=== PATIENT | male | born 1950 | race Caucasian/White ===

== ENCOUNTER 2020-09-11 10:11 | Outpatient (REF) | payer MEDICARE, SELFPAY ==
[2020-09-11 11:39] LABS: Estimated Average Glucose 114 mg/dL; Hemoglobin A1c % 5.6 %
== END 2020-09-11 10:12 | disposition home or self-care (01) ==
LOC: HO.MANLR 10:11
PROVIDERS: PCP Internal Medicine; Visit Provider Internal Medicine
DX: E11.9 Type 2 diabetes mellitus without complications (principal)
CPT/HCPCS: 83036

== ENCOUNTER 2021-01-06 07:33 | Outpatient (REF) | payer MEDICARE, SELFPAY ==
[2021-01-06 11:33] LABS: Estimated Average Glucose 114 mg/dL; Hemoglobin A1C 150.0799 umol/L; Hemoglobin A1c % 5.6 %
[2021-01-06 11:49] LABS: Alanine Aminotransferase 21 U/L (0-40); Albumin Level 4.5 g/dL (3.5-5.0); Alkaline Phosphatase 60 U/L (39-117); Anion Gap 14 (12-20); Aspartate Amino Transferase 23 U/L (5-37); Bilirubin Total 1.2 mg/dL (0.0-1.0); Blood Urea Nitrogen 17 mg/dL (9-16); Calcium 9.2 mg/dL (8.4-10.2); Carbon Dioxide 31 mmol/L (22-29); Chloride 101 mmol/L (96-108); Cholesterol 188 mg/dL; Estimated Glomerular Filt Rate 49; Glucose Fasting 113 mg/dL (60-99); HDL Cholesterol 36 mg/dL; LDL Cholesterol Calculated 104 mg/dl; Potassium 4.4 mmol/L (3.3-5.1); Sodium 142 mmol/L (135-145); Total Protein 6.8 g/dL (6.5-8.0); Triglycerides 241 mg/dL
[2021-01-06 11:51] LABS: Creatinine Urine 133.53 mg/dL; Microalbum/Creatinine Ratio Ur 4.4 ug/mg cr
== END 2021-01-06 07:34 | disposition home or self-care (01) ==
LOC: HO.MANLDS 07:33
PROVIDERS: PCP Internal Medicine; Visit Provider Internal Medicine
DX: E11.9 Type 2 diabetes mellitus without complications (principal)
CPT/HCPCS: 36415; 80053; 80061; 82043; 83036

== ENCOUNTER 2021-04-16 07:34 | Outpatient (REF) | payer MEDICARE, SELFPAY ==
[2021-04-16 11:37] LABS: Estimated Average Glucose 123 mg/dL; Hemoglobin A1c % 5.9 %
[2021-04-16 11:42] LABS: Alanine Aminotransferase 19 U/L (0-40); Albumin Level 4.1 g/dL (3.5-5.0); Alkaline Phosphatase 62 U/L (39-117); Anion Gap 12 (12-20); Aspartate Amino Transferase 21 U/L (5-37); Bilirubin Total 0.9 mg/dL (0.0-1.0); Blood Urea Nitrogen 15 mg/dL (9-16); Calcium 9.5 mg/dL (8.4-10.2); Carbon Dioxide 32 mmol/L (22-29); Chloride 102 mmol/L (96-108); Estimated Glomerular Filt Rate 45; Glucose Random 159 mg/dL (60-115); Potassium 4.4 mmol/L (3.3-5.1); Sodium 142 mmol/L (135-145); Total Protein 6.3 g/dL (6.5-8.0)
== END 2021-04-16 07:35 | disposition home or self-care (01) ==
LOC: HO.MANLDS 07:34
PROVIDERS: PCP Internal Medicine; Visit Provider Internal Medicine
DX: E11.9 Type 2 diabetes mellitus without complications (principal)
CPT/HCPCS: 36415; 80053; 83036

== ENCOUNTER 2021-05-19 07:36 | Outpatient (REF) | payer MEDICARE, SELFPAY ==
[2021-05-19 12:04] LABS: Anion Gap 12 (12-20); Blood Urea Nitrogen 15 mg/dL (9-16); Calcium 9.3 mg/dL (8.4-10.2); Carbon Dioxide 28 mmol/L (22-29); Chloride 105 mmol/L (96-108); Estimated Glomerular Filt Rate 52; Potassium 4.4 mmol/L (3.3-5.1); Sodium 141 mmol/L (135-145)
== END 2021-05-19 07:37 | disposition home or self-care (01) ==
LOC: HO.MANLDS 07:36
PROVIDERS: PCP Internal Medicine; Visit Provider Internal Medicine
DX: N18.9 Chronic kidney disease, unspecified (principal)
CPT/HCPCS: 36415; 80051; 82310; 82565; 84520

== ENCOUNTER 2021-10-10 08:04 | Outpatient (REF) | payer MEDICARE, SELFPAY ==
[2021-10-10 11:13] LABS: Estimated Average Glucose 111 mg/dL; Hemoglobin A1c % 5.5 %
[2021-10-10 11:37] LABS: Anion Gap 13 (12-20); Blood Urea Nitrogen 16 mg/dL (9-16); Calcium 9.5 mg/dL (8.4-10.2); Carbon Dioxide 26 mmol/L (22-29); Chloride 106 mmol/L (96-108); Cholesterol 178 mg/dL; Estimated Glomerular Filt Rate 54; HDL Cholesterol 35 mg/dL; LDL Cholesterol Calculated 97 mg/dl; Potassium 4.2 mmol/L (3.3-5.1); Sodium 141 mmol/L (135-145); Triglycerides 234 mg/dL
[2021-10-10 11:55] LABS: Creatinine Urine 110.35 mg/dL; Microalbum/Creatinine Ratio Ur 6.3 ug/mg cr
== END 2021-10-10 08:05 | disposition home or self-care (01) ==
LOC: HO.MANLDS 08:04
PROVIDERS: PCP Internal Medicine; Visit Provider Internal Medicine
DX: E11.9 Type 2 diabetes mellitus without complications (principal); N18.9 Chronic kidney disease, unspecified
CPT/HCPCS: 36415; 80051; 80061; 82043; 82310; 82565; 83036; 84520

== ENCOUNTER 2022-01-05 08:10 | Outpatient (REF) | payer MEDICARE, SELFPAY ==
[2022-01-05 12:01] LABS: Estimated Average Glucose 111 mg/dL; Hemoglobin A1c % 5.5 %
== END 2022-01-05 08:11 | disposition home or self-care (01) ==
LOC: HO.MANLDS 08:10
PROVIDERS: PCP Internal Medicine; Visit Provider Internal Medicine
DX: E11.9 Type 2 diabetes mellitus without complications (principal)
CPT/HCPCS: 36415; 83036

== ENCOUNTER 2022-06-05 07:38 | Outpatient (REF) | payer MEDICARE, SELFPAY ==
[2022-06-05 11:00] LABS: MANUAL DIFF FLAG NO
[2022-06-05 11:02] LABS: Basophils Percent Auto 0.4 % (0-2); Eosinophils Absolute Auto 0.1 X10*3/uL (0.0-0.4); Eosinophils Percent Auto 1.1 % (0-4); Hematocrit 41.6 % (42.0-52.0); Hemoglobin 13.9 g/dl (14.0-18.0); Imm Gran Abs Auto 0.04 X10*3/uL (0.00-0.03); Imm Gran Pct Auto 0.7 % (0.0-0.4); Lymphocytes Absolute Auto 0.8 X10*3/uL (1.2-4.9); Mean Corpuscular HGB Conc 33.4 g/dl (31.0-36.0); Mean Corpuscular Hemoglobin 29.9 pg (27.0-33.0); Mean Corpuscular Volume 89.5 fL (80.0-98.0); Mean Platelet Volume 11.3 fL (9.4-12.4); Monocytes Absolute Auto 0.4 X10*3/uL (0.1-1.2); Monocytes Percent Auto 7.8 % (2-11); Neutrophils Absolute Auto 4.1 x10*3/uL (2.0-8.3); Platelet Count 185 X10*3/uL (160-400); Red Blood Count 4.65 X10*6/uL (4.60-5.80); Red Cell Distribution Width 11.9 % (11.0-16.0); White Blood Count 5.5 X10*3/uL (4.8-10.8)
[2022-06-05 11:41] LABS: Estimated Average Glucose 108 mg/dL; Hemoglobin A1c % 5.4 %
[2022-06-05 11:52] LABS: Creatinine Urine 49.45 mg/dL; Microalbumin Urine < 5.0 mg/L
[2022-06-05 12:01] LABS: Alanine Aminotransferase 27 U/L (0-40); Albumin Level 3.8 g/dL (3.5-5.0); Alkaline Phosphatase 60 U/L (39-117); Anion Gap 17 (12-20); Aspartate Amino Transferase 23 U/L (5-37); Bilirubin Direct 0.3 mg/dL (0.0-0.5); Bilirubin Total 0.9 mg/dL (0.0-1.0); Blood Urea Nitrogen 13 mg/dL (9-16); Calcium 9.1 mg/dL (8.4-10.2); Carbon Dioxide 27 mmol/L (22-29); Chloride 103 mmol/L (96-108); Cholesterol 161 mg/dL; Estimated Glomerular Filt Rate > 60; Glucose Random 118 mg/dL (60-115); HDL Cholesterol 29 mg/dL; LDL Cholesterol Calculated 91 mg/dl; Potassium 4.5 mmol/L (3.3-5.1); Sodium 142 mmol/L (135-145); Triglycerides 205 mg/dL
[2022-06-05 13:22] LABS: Prostate Specific Antigen 1.36 ng/mL (<0.05-4.0)
== END 2022-06-05 07:39 | disposition home or self-care (01) ==
LOC: HO.MANLDS 07:38
PROVIDERS: Visit Provider Internal Medicine
DX: Z12.5 Encounter for screening for malignant neoplasm of prostate (principal); I12.9 Hypertensive chronic kidney disease with stage 1 through stage 4 chronic kidney disease, or unspecified chronic kidney disease; N18.9 Chronic kidney disease, unspecified; E11.22 Type 2 diabetes mellitus with diabetic chronic kidney disease
CPT/HCPCS: 36415; 80053; 80061; 82043; 82248; 83036; 84153; 85025

== ENCOUNTER 2022-10-19 08:29 | Outpatient (REF) | payer MEDICARE, SELFPAY ==
[2022-10-19 14:17] LABS: Estimated Average Glucose 114 mg/dL; Hemoglobin A1c % 5.6 %
[2022-10-19 14:27] LABS: Alanine Aminotransferase 15 U/L (0-40); Albumin Level 3.9 g/dL (3.5-5.0); Alkaline Phosphatase 56 U/L (39-117); Anion Gap 16 (12-20); Aspartate Amino Transferase 18 U/L (5-37); Blood Urea Nitrogen 17 mg/dL (9-16); Calcium 9.4 mg/dL (8.4-10.2); Carbon Dioxide 25 mmol/L (22-29); Chloride 107 mmol/L (96-108); Cholesterol 166 mg/dL; Estimated Glomerular Filt Rate > 60; Glucose Random 123 mg/dL (60-115); HDL Cholesterol 35 mg/dL; LDL Cholesterol Calculated 95 mg/dl; Sodium 144 mmol/L (135-145); Triglycerides 184 mg/dL
[2022-10-19 17:06] LABS: Creatinine Urine 49.27 mg/dL; Microalbumin Urine < 5.0 mg/L
== END 2022-10-19 08:30 | disposition home or self-care (01) ==
LOC: HO.MANLDS 08:29
PROVIDERS: Visit Provider Internal Medicine
DX: E11.9 Type 2 diabetes mellitus without complications (principal)
CPT/HCPCS: 36415; 80053; 80061; 82043; 83036

== ENCOUNTER 2023-01-19 07:35 | Outpatient (REF) | payer MEDICARE, SELFPAY ==
[2023-01-19 12:04] LABS: Estimated Average Glucose 111 mg/dL; Hemoglobin A1C 148.4568 umol/L; Hemoglobin A1c % 5.5 %
[2023-01-19 12:19] LABS: Alanine Aminotransferase 17 U/L (0-40); Albumin Level 4.3 g/dL (3.5-5.0); Alkaline Phosphatase 56 U/L (39-117); Anion Gap 13 (12-20); Aspartate Amino Transferase 21 U/L (5-37); Bilirubin Total 1.5 mg/dL (0.0-1.0); Blood Urea Nitrogen 15 mg/dL (9-16); Calcium 9.4 mg/dL (8.4-10.2); Carbon Dioxide 28 mmol/L (22-29); Chloride 106 mmol/L (96-108); Cholesterol 169 mg/dL; Estimated Glomerular Filt Rate 55; Glucose Random 103 mg/dL (60-115); HDL Cholesterol 40 mg/dL; LDL Cholesterol Calculated 96 mg/dl; Potassium 4.3 mmol/L (3.3-5.1); Sodium 143 mmol/L (135-145); Total Protein 6.3 g/dL (6.5-8.0); Triglycerides 168 mg/dL
== END 2023-01-19 07:36 | disposition home or self-care (01) ==
LOC: HO.MANLDS 07:35
PROVIDERS: Visit Provider Internal Medicine
DX: E11.9 Type 2 diabetes mellitus without complications (principal)
CPT/HCPCS: 36415; 80053; 80061; 83036

== ENCOUNTER 2023-01-27 10:00 | Outpatient (REF) | payer MEDICARE, SELFPAY ==
[2023-01-27 12:14] LABS: Uric Acid 6.1 mg/dL (3.4-7.0)
== END 2023-01-27 10:01 | disposition home or self-care (01) ==
LOC: HO.MANLDS 10:00
PROVIDERS: Visit Provider Internal Medicine
DX: M10.9 Gout, unspecified (principal)
CPT/HCPCS: 36415; 84550

== ENCOUNTER 2023-07-12 11:06 | Outpatient (REF) | payer MEDICARE, SELFPAY | END 2023-07-12 11:07 | disposition home or self-care (01) | LOC: HO.MANLDS 11:06 | PROVIDERS: Visit Provider Internal Medicine | DX: Z13.89 Encounter for screening for other disorder (principal) ==

== ENCOUNTER 2023-07-14 07:25 | Outpatient (REF) | payer MEDICARE, SELFPAY ==
[2023-07-14 14:12] LABS: Estimated Average Glucose 108 mg/dL; Hemoglobin A1c % 5.4 % (<6.0)
== END 2023-07-14 07:26 | disposition home or self-care (01) ==
LOC: HO.MANLDS 07:25
PROVIDERS: Visit Provider Internal Medicine
DX: Z13.89 Encounter for screening for other disorder (principal)
CPT/HCPCS: 36415; 83036

== ENCOUNTER 2023-11-02 07:24 | Outpatient (REF) | payer MEDICARE, SELFPAY ==
[2023-11-02 13:20] LABS: MANUAL DIFF FLAG NO
[2023-11-02 13:41] LABS: Basophils Percent Auto 0.7 % (0-2); Eosinophils Absolute Auto 0.1 X10*3/uL (0.0-0.4); Hematocrit 44.3 % (42.0-52.0); Hemoglobin 15.1 g/dl (14.0-18.0); Imm Gran Abs Auto 0.02 X10*3/uL (0.00-0.03); Imm Gran Pct Auto 0.3 % (0.0-0.4); Lymphocytes Absolute Auto 1.1 X10*3/uL (1.2-4.9); Lymphocytes Percent Auto 18.9 % (20-40); Mean Corpuscular HGB Conc 34.1 g/dl (31.0-36.0); Mean Corpuscular Hemoglobin 30.4 pg (27.0-33.0); Mean Corpuscular Volume 89.3 fL (80.0-98.0); Mean Platelet Volume 11.4 fL (9.4-12.4); Monocytes Absolute Auto 0.5 X10*3/uL (0.1-1.2); Monocytes Percent Auto 8.4 % (2-11); Neutrophils Absolute Auto 4.2 x10*3/uL (2.0-8.3); Neutrophils Percent Auto 70.7 % (45-73); Platelet Count 125 X10*3/uL (160-400); Red Blood Count 4.96 X10*6/uL (4.60-5.80)
[2023-11-02 14:04] LABS: Estimated Average Glucose 111 mg/dL; Hemoglobin A1c % 5.5 % (<6.0)
[2023-11-02 14:11] LABS: Alanine Aminotransferase 19 U/L (0-40); Albumin Level 4.2 g/dL (3.5-5.0); Alkaline Phosphatase 57 U/L (39-117); Anion Gap 15 (12-20); Aspartate Amino Transferase 23 U/L (5-37); Bilirubin Total 1.1 mg/dL (0.0-1.0); Blood Urea Nitrogen 17 mg/dL (9-16); Calcium 9.4 mg/dL (8.4-10.2); Carbon Dioxide 27 mmol/L (22-29); Chloride 104 mmol/L (96-108); Cholesterol 156 mg/dL (<200); Estimated Glomerular Filt Rate 60; Glucose Random 99 mg/dL (60-115); HDL Cholesterol 43 mg/dL (>40); LDL Cholesterol Calculated 83 mg/dL (<100); Potassium 3.8 mmol/L (3.3-5.1); Sodium 142 mmol/L (135-145); Total Protein 6.5 g/dL (6.5-8.0); Triglycerides 151 mg/dL (<150)
[2023-11-02 14:19] LABS: Prostate Specific Antigen 2.42 ng/mL (<0.05-4.0)
[2023-11-02 14:29] LABS: Uric Acid 4.9 mg/dL (3.4-7.0)
== END 2023-11-02 07:25 | disposition home or self-care (01) ==
LOC: HO.MANLDS 07:24
PROVIDERS: Visit Provider Internal Medicine
DX: M10.9 Gout, unspecified (principal); R73.01 Impaired fasting glucose; I10 Essential (primary) hypertension; Z12.5 Encounter for screening for malignant neoplasm of prostate
CPT/HCPCS: 36415; 80053; 80061; 83036; 84153; 84550; 85025

== ENCOUNTER 2024-02-22 08:59 | Outpatient (REF) | payer MEDICARE, SELFPAY ==
[2024-02-22 13:56] LABS: Estimated Average Glucose 117 mg/dL; Hemoglobin A1c % 5.7 % (<6.0)
== END 2024-02-22 09:00 | disposition home or self-care (01) ==
LOC: HO.MANLDS 08:59
PROVIDERS: Visit Provider Internal Medicine
DX: E11.9 Type 2 diabetes mellitus without complications (principal)
CPT/HCPCS: 36415; 83036

== ENCOUNTER 2024-06-23 11:01 | Outpatient (REF) | payer MEDICARE, SELFPAY ==
[2024-06-23 14:13] LABS: Estimated Average Glucose 117 mg/dL; Hemoglobin A1c % 5.7 % (<6.0)
== END 2024-06-23 11:02 | disposition home or self-care (01) ==
LOC: HO.MANLDS 11:01
PROVIDERS: Visit Provider Internal Medicine
DX: R73.01 Impaired fasting glucose (principal)
CPT/HCPCS: 36415; 83036

== ENCOUNTER 2024-12-13 07:48 | Outpatient (REF) | payer MEDICARE, SELFPAY ==
[2024-12-13 13:37] LABS: Estimated Average Glucose 123 mg/dL; Hemoglobin A1c % 5.9 % (<6.0)
[2024-12-13 13:54] LABS: Alanine Aminotransferase 24 U/L (0-40); Albumin Level 4.3 g/dL (3.5-5.0); Alkaline Phosphatase 63 U/L (39-117); Anion Gap 12 (12-20); Aspartate Amino Transferase 27 U/L (5-37); Bilirubin Total 1.4 mg/dL (0.0-1.0); Blood Urea Nitrogen 19 mg/dL (9-16); Calcium 9.7 mg/dL (8.4-10.2); Carbon Dioxide 26 mmol/L (22-29); Chloride 106 mmol/L (96-108); Cholesterol 179 mg/dL (<200); Estimated Glomerular Filt Rate > 60; Glucose Random 124 mg/dL (60-115); HDL Cholesterol 37 mg/dL (>40); LDL Cholesterol Calculated 100 mg/dL (<100); Potassium 3.8 mmol/L (3.3-5.1); Sodium 140 mmol/L (135-145); Total Protein 7.2 g/dL (6.5-8.0); Triglycerides 211 mg/dL (<150)
== END 2024-12-13 07:49 | disposition home or self-care (01) ==
LOC: HO.MANLDS 07:48
PROVIDERS: Visit Provider Internal Medicine
DX: E11.9 Type 2 diabetes mellitus without complications (principal)
CPT/HCPCS: 36415; 80053; 80061; 83036

== ENCOUNTER 2025-04-10 09:41 | Outpatient (REF) | payer MEDICARE, SELFPAY ==
--- OUTSIDE RECORDS SUMMARY | 2025-04-10 10:24 | XMS_ITS | Data Portability ---
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) [facility] MODERATE MUST MEET 2 OUT OF 3 ELEMENTS: PROBLEMS, DATA OR RISK ELEMENT 1: PROBLEMS ADDRESSED 1 OR MORE CHRONIC ILLNESS WITH EXACERBATION OR 2 OR MORE STABLE CHRONIC ILLNESSES OR 1 UNDIAGNOSED NEW PROBLEM OR 1 ACUTE ILLNESS W/SYMPTOMS OR 1 ACUTE COMPLICATED INJURY ELEMENT 2: DATA MUST MEET 1 OF 3 CATEGORIES CATEGORY 1: REVIEW OF PRIOR EXTERNAL NOTES, REVIEW OF RESULTS, ORDERING OF EACH TEST, ASSESSMENT REQUIRING INDEPENDENT HISTORIAN OR CATEGORY 2: INDEPENDENT INTERPRETATION OF TESTS BY ANOTHER PHYSICIAN OR SPECIALIST OR CATEGORY 3: DISCUSSION OF MGT OR TEST INTERPRETATION W/EXTERNAL PHYSICIAN OR SPECIALIST ELEMENT 3: RISK RISK OF COMPLICATIONS AND/OR MORBIDITY OR MORTALITY OF PATIENT MANAGEMENT PROVIDER MUST THOROUGHLY DOCUMENT EACH ELEMENT THAT IS COVERED Not available 02/25/2024 09:43:02 06/28/2024 06/28/2024 [id number] [place] [id number]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) [facility] MODERATE MUST MEET 2 OUT OF 3 ELEMENTS: PROBLEMS, DATA OR RISK ELEMENT 1: PROBLEMS ADDRESSED 1 OR MORE CHRONIC ILLNESS WITH EXACERBATION OR 2 OR MORE STABLE CHRONIC ILLNESSES OR 1 UNDIAGNOSED NEW PROBLEM OR 1 ACUTE ILLNESS W/SYMPTOMS OR 1 ACUTE COMPLICATED INJURY ELEMENT 2: DATA MUST MEET 1 OF 3 CATEGORIES CATEGORY 1: REVIEW OF PRIOR EXTERNAL NOTES, REVIEW OF RESULTS, ORDERING OF EACH TEST, ASSESSMENT REQUIRING INDEPENDENT HISTORIAN OR CATEGORY 2: INDEPENDENT INTERPRETATION OF TESTS BY ANOTHER PHYSICIAN OR SPECIALIST OR CATEGORY 3: DISCUSSION OF MGT OR TEST INTERPRETATION W/EXTERNAL PHYSICIAN OR SPECIALIST ELEMENT 3: RISK RISK OF COMPLICATIONS AND/OR MORBIDITY OR MORTALITY OF PATIENT MANAGEMENT PROVIDER MUST THOROUGHLY DOCUMENT EACH ELEMENT THAT IS COVERED Not available 06/28/2024 09:43:01 12/15/2024 12/15/2024 [id number] [place] [id number]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) MDM HIGH MUST MEET 2 OUT OF 3 ELEMENTS: PROBLEMS, DATA OR RISK ELEMENT 1: PROBLEMS 1 OR MORE CHRONIC ILLNESS W/SEVERE EXACERBATION, PROGRESSION MAY REQUIRE HOSPITAL LEVEL CARE OR 1 ACUTE OR CHRONIC ILLNESS OR INJURY THAT POSES A THREAT TO LIFE OR BODILY FUNCTION ELEMENT 2: DATA: MUST MEET 2 OF 3 CATEGORIES CATEGORY 1 REVIEW OF PRIOR EXTERNAL NOTES REVIEW OF THE RESULTS ORDERING OF EACH TEST ASSESSMENT REQUIRING INDEPENDENT HISTORIAN(S) CATEGORY 2: INDEPENDENT INTERPRETATION OF TESTS BY ANOTHER PROVIDER/SPECIALI ST CATEGORY 3: DISCUSSION OF MGT OR TEST INTERPRETATION W/EXTERNAL PHYSICIAN/SPECIAL IST ELEMENT 3: RISK HIGH RISK OF MORBIDITY FROM ADDITIONAL DIAGNOSTIC TESTING OR TREATMENT PROVIDER MUST THOROUGHLY DOCUMENT EACH ELEMENT THAT IS COVERED The patient presented to their appointment today for multiple concerns requiring moderate to high-level decision making and took over 40-45 minutes for an adequate and appropriate history, exam, assessment and treatment plan. This appointment was done with an established patient. Not available 12/15/2024 09:26:35 Plan of Treatment Reminders Order Date Submit Date Provider Last Modified By Organization Details Last Modified Time Details Appointments FOLLOW UP 15 2024 09:00A M DR AGUILA Not available Not available Not available Lab HbA1c (hemoglob in A1c), blood 2024 025 [facility], [address] [place] [address], [place], [address], 12/15/2024 09:30:41 CMP, serum or plasma 2024 025 [facility], [address] [place] [address], [place], [address], 12/15/2024 09:30:41 Referral dermatolo gist referral - please see mayo castro 2023 024 [email or web address] 10 [facility], [address], [place], [address], 02/28/2024 08:22:32 Procedures None recorded. Surgeries None recorded. Imaging None recorded. Medication Orders amoxicill in 875 mg tablet 2024 025 [id number], [address] [place], [place], [phone], 12/29/2024 15:09:08 ketoconaz ole 200 mg tablet 2023 024 [facility][id number], [address] [place], [place], [phone], 12/22/2023 10:00:18 Patient TargetsNo targets recorded. Patient Instructions Encounter Date Encounter Id Patient Instructions Last Modified By Organization Details Last Modified Time 02/25/2024 [id number] gout: care instructions Not available 02/25/2024 09:41:12 prediabetes: car e instructions Not available 02/25/2024 09:41:12 high blood pressure: care instructions Not available 02/25/2024 09:41:12 learning about high blood pressure Not available 02/25/2024 09:41:12 atrial fibrillation: care instructions Not available 02/25/2024 09:41:12 leg and ankle edema: care instructions Not available 02/25/2024 09:41:12 06/28/2024 [id number] prediabetes: car e instructions Not available 06/28/2024 09:43:01 12/15/2024 [id number] gout: care instructions Not available 12/15/2024 09:27:19 leg and ankle edema: care instructions Not available 12/15/2024 09:25:34 prediabetes: car e instructions Not available 12/15/2024 09:25:34 high blood pressure: care instructions Not available 12/15/2024 09:25:34 learning about high blood pressure Not available 12/15/2024 09:25:34 pulse oximetry* Not available 12/15/2024 09:25:34 Reason for Referral [employer] Referral for D ysplastic nevus of skin please see soon suspicious Referring Physician: Bay Aguila, Internal Medicine, Encounter Date: 02/25/2024 Results Created Date Observation Date Name Description Value Unit Range Abnormal Flag Note LastModifiedBy Organization Detail LastModifiedTime 12/16/1912/15/2024 pulse oxime try* Result 95 Not Available [facility] [address] [facility] [address], [place], [address], 12/13/2024 10:36:32 12/24/19 24 12/24/2023 US, duple x, lower extre mity No observ ation record ed. [facility] [address], [place], [address], 02/25/2024 09:30:23 06/16/20 24 12/24/2023 US, echoc ardio gram No observ ation record ed. [email or web address] [facility] [address], [place], [address], 06/16/2024 14:42:44 04/05/20 25 04/05/2025 trans -thor acic echoc ardio gram (TTE) (PROC ) No observ ation record ed. [facility] [address], [place], [address], 04/05/2025 14:11:21 Result Notes None recorded. Problems Name Problem SNOMED Code Status Onset Date Resolution Date Notes Provider Name and Address Organization Details Recorded Time [facility] neftali 39909199 Active 2017 Lillian moreau [facility] 5 10:36:16 Endocard itis 65766262 Active 2017 H/O Lillian moreau [facility] 5 10:36:23 Harmful pattern of use of alcohol 00496465 Completed 201701/04/2019 Bay Aguila, DO [address] [facility], [place], [address], [facility] 04/10/201 9 09:45:32 Edema 876259894 Active 2017 Lillian moreau [facility] 5 10:36:16 Osteoart hritis 592241394 [facility] 5 10:36:16 History of aortic valve replacem ent 83182772534 00 [facility] 2017 [facility] 5 10:36:16 Gout 48140981 Active 2017 Not Available [facility] 0 12:04:45 Anxiety 11168531 Active 2020 Bay Aguila, DO [address] [place] [address], [address], [facility] 1 10:47:52 Impaired fasting glycemia 956102187 Active 2021 Bay Aguila, DO [address] [place] [address], [address], [facility] 2 11:12:23 Acute low back pain 418715581 [facility] 2021 [facility] 5 10:36:23 Lumbar radiculo mikayla 892250349 Active 2021 [facility] 5 10:36:16 Degenera tion of lumbar interver tebral disc 87471968 Active 2021 Lillian moreau [facility] 5 10:36:16 Spinal stenosis of lumbar region 00322081 Active 2022 Lillian moreau [facility] 5 10:36:16 Abscess 709090835 Active 2022 Lillian moreau [facility] 5 10:36:23 Atrial fibrilla tion 56117343 Active 2022 Lillian moreau [facility] 5 10:36:16 Cervical radiculo mikayla 20461028 Active 2023 Lillian Veras null, [facility] 5 10:36:16 Onycholy sis due to fungal infectio n of nail 382489942 Active 2023 Lillian Veras null, [facility] 5 10:36:23 Dysplast ic nevus of skin 620689375 Active 2023 Lillian Veras null, [facility] 5 10:36:16 Mitral stenosis with insuffic iency 219839581 Active 2023 Lilliandonnie Veras null, [facility] 5 10:36:16 Sick sinus syndrome 66942478 Active 2024 Bay Aguila DO [address] [place] [address], [address], [facility] 5 09:16:08 Cardiac pacemake r in situ 517920016 Active 2024 Bay Aguila DO [address] [place] [address], [address], [facility] 5 09:16:24 Acute left otitis media 615809581 Active 2024 CHRISTIANNE CADET [address] [place] [address], [address], [facility] 5 15:07:19 Abscess of buttock 58027700 Active 2024 Bay Aguila DO [address] [place] [address], [address], [facility] 5 13:25:53 Problem Notes None recorded. Procedures Surgical History Date Name Laterality Status Provider Name and Address Organization Details Recorded Time 05/02/20 20 Colonoscopy completed Bay Aguila DO [address] [place] [address], [phone], [facility] 05/10/2020 10:46:29 Imaging Results None recorded. Procedure Notes None recorded. Medical Equipment None Reported. Allergies No known drug allergies Medications Name Sig Start Date Stop Date Status Note LastModified by Organization Details LastModified Time losartan 50 mg tablet TAKE 1 TABLET BY MOUTH TWICE DAILY active Not Available Not Available No t Available amoxicillin 500 mg capsule TAKE 4 CAPSULES BY MOUTH 1 HOUR BEFORE SURGERY active Not Available Not Available No t Available prednisone 10 mg tablet TAKE 6 TABLETS FOR 2 DAYS, THEN 5 TABLETS X 2 DAYS, 4 TABLETS X 2 DAYS, 3 TABLETS X 2 DAYS, 2 TABLETS X 2 DAYS, 1 TABLET X 2 DAYS active Not Available Not Available No t Available doxycycline hyclate 100 mg capsule Take 1 capsule twice a day by oral route for 10 days. 2024 active Not Available Not Available Not Avai lable naproxen 375 mg tablet Take 1 tablet twice a day by oral route for 15 days. 01/28 completed Not Available Not Available Not Available ketoconazol e 200 mg tablet TAKE 1 TABLET BY MOUTH EVERY DAY DIRECTED active Not Available Not Available No t Available aspirin 325 mg tablet Take 0.5 tablets every day by oral route. 02/02 completed Not Available Not Available Not Available tizanidine 4 mg tablet Take 1 tablet every 8 hours by oral route for 15 days. 05/31 completed Not Available Not Available Not Available meloxicam 15 mg tablet TAKE 1 TABLET BY MOUTH EVERY DAY NEEDED 02/02 completed Not Available Not Available Not Available prednisone 5 mg tablet TAKE DIRECTED WITH ATTATCHED DIRECTION S 12/21 completed Not Available Not Available Not Available potassium chloride ER 10 mEq tablet,exte nded release TAKE 1 TABLET BY MOUTH TWICE DAILY 10/14 completed Not Available Not Available Not Available amlodipine 5 mg tablet TAKE ONE TABLET ONCE PER DAY active Not Available Not Available No t Available sulfamethox azole 800 mg-trimetho prim 160 mg tablet TAKE 1 TABLET BY MOUTH EVERY 12 HOURS FOR 7 DAYS active Not Available Not Available No t Available butalbital- acetaminoph en-caffeine 50 mg-325 mg-40 mg tablet TAKE 1 TABLET BY MOUTH THREE TIMES DAILY 02/02 completed Not Available Not Available Not Available meloxicam 7.5 mg tablet TAKE 1 TABLET BY MOUTH EVERY DAY WITH MEALS FOR NECK PAIN. active Not Available Not Available No t Available alprazolam 0.5 mg tablet TAKE 1 TABLET BY MOUTH TWICE DAILY NEEDED 01/27 completed Not Available Not Available Not Available amoxicillin 875 mg tablet TAKE 1 TABLET BY MOUTH EVERY 12 HOURS FOR 7 DAYS active Not Available Not Available No t Available lorazepam 0.5 mg tablet Take one tablet as needed. for panic attack 01/04 completed Not Available Not Available Not Available gentamicin 0.3 % eye drops 01/28 completed Not Available Not Available Not Available tamsulosin 0.4 mg capsule Take 1 capsule every day by oral route for 30 days. 01/27 completed Not Available Not Available Not Available furosemide 80 mg tablet TAKE 1/2 TABLET BY MOUTH EVERY DAY AT 6 AM AND AT 1 PM 04/23 completed Not Available Not Available Not Available amlodipine 10 mg tablet 12/21 completed Not Available Not Available Not Available prednisone 2.5 mg tablet TAKE 1 TABLET BY MOUTH EVERY DAY FOR 5 DAYS DIRECTED active Not Available Not Available No t Available losartan 25 mg tablet 10/06 completed Not Available Not Available Not Available docusate sodium 100 mg capsule TAKE 1 CAPSULE BY MOUTH TWICE DAILY 01/27 completed Not Available Not Available Not Available folic acid 1 mg tablet TAKE 1 TABLET BY MOUTH EVERY DAY 02/02 completed Not Available Not Available Not Available hydrochloro thiazide 25 mg tablet TAKE ONE TABLET QD active Not Available Not Available No t Available furosemide 20 mg tablet active Not Available Not Available Not Available metoprolol succinate ER 25 mg tablet,exte nded release 24 hr 2024 active Not Available Not Available Not Avai lable colchicine 0.6 mg tablet active Not Available Not Available Not Available amoxicillin 875 mg-potassiu m clavulanate 125 mg tablet TAKE 1 TABLET BY MOUTH EVERY 12 HOURS FOR 7 DAYS 01/08 completed Not Available Not Available Not Available oxycodone 5 mg tablet TAKE 1 TABLET BY MOUTH EVERY 4 HOURS FOR 7 DAYS NEEDED 10/21 completed Not Available Not Available Not Available metoprolol tartrate 25 mg tablet TAKE 1 TABLET BY MOUTH TWICE DAILY 01/27 completed Not Available Not Available Not Available naproxen 01/08 completed Not Available Not Available Not Available Iron (ferrous sulfate) 06/30 completed Not Available Not Available Not Available Multi Vitamin 01/27 completed Not Available Not Available Not Available Shingrix (PF) 50 mcg/0.5 mL intramuscul ar suspension, kit ADMINISTE R 0.5ML IN THE MUSCLE DIRECTED 09/13 completed Not Available Not Available Not Available Plenvu 140 gram-9 gram-5.2 gram powder packs U UTD 09/13 completed Not Available Not Available Not Available Fluad Quad (6 5yr up)(PF) 60 mcg (15 mcg x 4)/0.5mL IM syringe ADM 0.5ML IM UTD 09/13 completed Not Available Not Available Not Available aspirin 81 mg capsule Take 1 capsule every day by oral route. 01/27 completed Not Available Not Available Not Available Vitals Date Recorded Body height Body mass index (BMI) Body weight Heart rate Oxygen saturation Oxygen saturation in Arterial blood by Pulse oximetry Systolic And Diastolic Provider Name and Address Organization Details Last Updated DateTime 5 177.8 cm 33 kg/m2 907182. 32 g 74 /min 95 % 95 % 122/78 mm[Hg] Lillian Veras [facility] 5 09:05:07 Date Recorded Body height Body mass index (BMI) Body weight Oxygen saturation Oxygen saturation in Arterial blood by Pulse oximetry Heart rate Systolic And Diastolic Provider Name and Address Organization Details Last Updated DateTime 4 178.44 cm 32.8 kg/m2 462066. 25 g 96 % 96 % 67 /min 130/60 mm[Hg] Roseann Lemus [facility] 4 09:31:42 Date Recorded Body height Body mass index (BMI) Body weight Heart rate Oxygen saturation Oxygen saturation in Arterial blood by Pulse oximetry Systolic And Diastolic Provider Name and Address Organization Details Last Updated DateTime 5 177.8 cm 33 kg/m2 545302. 25 g 74 /min 97 % 97 % 100/74 mm[Hg] Roseann Lemus [facility] 5 14:55:52 Date Recorded Body height Body mass index (BMI) Body weight Heart rate Respiratory rate Oxygen saturation Oxygen saturation in Arterial blood by Pulse oximetry Systolic And Diastolic Provider Name and Address Organization Details Last Updated DateTime 4 177.8 cm 33.2 kg/m2 560606. 56 g 69 /min 18 /min 95 % 95 % 132/82 mm[Hg] Timmy Denton [facility] 4 09:10:09 Date Recorded Body height Body mass index (BMI) Body weight Heart rate Oxygen saturation Oxygen saturation in Arterial blood by Pulse oximetry Systolic And Diastolic Provider Name and Address Organization Details Last Updated DateTime 4 177.8 cm 33.1 kg/m2 733605. 84 g 53 /min 97 % 97 % 110/70 mm[Hg] Roseann Edwardmond [facility] 4 09:26:14 Social History Question Answer Notes LastModified by Organizat ion Details LastModified Time Tobacco Smoking Status Former Smoker Not Available [facility] 07/30/2020 03:36:23 What Was The Date Of Your Most Recent Tobacco Screening? 12/29/2024 [email or web address] Information not available 12/29/2024 Sex: Unknown Functional Status Question Answer Note LastModified by Organization D etails LastModified Time Do you or have you ever used any other forms of tobacco or nicotine? No Information not available 10/21/2022 Mental Status None recorded. Family History Nothing Reported. Medical History No medical history recorded. Immunizations Vaccine Type Date Status Note Provider Nam e and Address Organization Details Recorded Time COVID-19, mRNA, LNP-S, PF, 100 mcg/0.5mL dose or 50 mcg/0.25mL dose 11/20/19 21 completed Not Available [facility] 06/15/2022 10:11:39 COVID-19, mRNA, LNP-S, PF, 100 mcg/0.5mL dose or 50 mcg/0.25mL dose 12/19/19 21 completed Not Available [facility] 06/15/2022 10:11:39 COVID-19, mRNA, LNP-S, PF, 100 mcg/0.5mL dose or 50 mcg/0.25mL dose 12/19/19 21 completed Not Available [facility] 06/15/2022 10:11:39 COVID-19, mRNA, LNP-S, PF, 100 mcg/0.5mL dose or 50 mcg/0.25mL dose 01/06/20 22 completed Not Available [facility] 06/15/2022 10:11:39 influenza, unspecified formulation 06/11/20 22 completed DO [address], [place], [address], [facility] 10/21/2022 08:56:08 COVID-19, mRNA, LNP-S, PF, 50 mcg/0.5 mL 07/12/20 completed Roseann moreau [facility] 07/12/2023 10:38:55 RSV, recombinant, protein subunit RSVpreF, adjuvant reconstituted, 0.5 mL, PF 07/12/20 completed Roseann moreau [facility] 07/12/2023 10:40:04 pneumococcal polysaccharide PPV23 08/15/20 19 completed Not Available [facility] 06/15/2022 10:11:39 Influenza, split virus, quadrivalent, preservative 08/15/20 19 completed Not Available [facility] 06/15/2022 10:11:39 Influenza, split virus, quadrivalent, preservative 05/31/20 20 completed Not Available [facility] 06/15/2022 10:11:39 zoster, unspecified formulation 07/09/20 20 completed Not Available [facility] 06/15/2022 10:11:39 zoster, unspecified formulation 09/06/20 20 completed Not Available [facility] 06/15/2022 10:11:39 zoster, unspecified formulation 04/20/20 12 completed Not Available [facility] 06/15/2022 10:11:39 Pneumococcal conjugate PCV 13 11/29/19 15 completed Not Available [facility] 06/15/2022 10:11:39 Influenza, split virus, quadrivalent, preservative 06/04/20 18 completed Not Available [facility] 06/15/2022 10:11:39 Pneumococcal conjugate PCV 13 06/04/20 18 completed Not Available [facility] 06/15/2022 10:11:39 Past Encounters Encounter ID Performer Location Encounter Start Date Encounter Closed Date Diagnosis/Indication Diagnosis SNOMED-CT Code Diagnosis ICD10 Code Diagnosis Note [id number] Bay Aguila DO [facility] [address] [facility],[place] [address] 01/28/2018 09:25:05 01/28/2018 16:07:13 Diabetes mellitus 17705845 E11.9 well a1c good has not gained weight diet good not enough exercise Hypertensive disorder 38 430152 I10 also doing well no major issues ' no cp still with exert dyspnea but this is typical and unhanged [id number] Bay Aguila [facility] [address] [facility] [address],[place] [address] 05/02/2018 10:52:21 05/02/2018 12:10:49 Gout 30066120 M10.9 Essential hypertension 35166642 I10 stable [id number] Bay Aldo Aguila [facility] [address] [facility] [address],[place] [address] 06/03/2018 09:40:24 06/03/2018 10:21:34 Essential hypertension 07633527 I10 excellent levels chk at home too Diabetes mellitus 875922 09 E11.9 well a1c good has not gained weight diet good not enough exercise Gout 30674954 M10.9 recent attack and will restart the colchicine Adult heal th examination 479593031 Z00.00 overall has done quite well and is pleased he has turned his health around now cont and will be getting his vaccines [id number] Bay Aguila [facility] [address] [facility] [address],[place] [address] 09/16/2018 09:42:43 09/16/2018 15:58:33 Essential hypertension 02528131 I10 excellent levels chk at home too Diabetes mellitus 171543 09 E11.9 well a1c good at 5.9 has not gained weight diet good not enough exercise Abdominal aortic aneurysm screening 300692357 Z13.6 will order US Generalize d anxiety disorder 78685785 F41.1 [id number] Bay Aguila [facility] [address] [facility] [address],[place] [address] 12/09/2018 09:46:54 12/09/2018 11:28:24 Gout 41434816 M10.9 Essential hypertension 40110273 I10 stable [id number] Bay Aldo Aguila [facility] [address] [facility] [address],[place] [address] 01/04/2019 09:23:57 01/04/2019 10:01:12 Diabetes mellitus 62820116 E11.9 well a1c good at 5.9 has not gained weight diet good not enough exercise and has been doing ok Essential hypertension 70057348 I10 excellent levels chk at home too Gout 51582909 M10.9 recent attack and will restart the colchicine Anxiety 29532409 F41.9 uses med to help sleep [id number] Bay Aguila [facility] [address] [facility],[place] [address] 04/14/2019 09:25:43 04/14/2019 10:20:18 Diabetes mellitus 22423728 E11.9 well a1c great at 5.9 has not gained weight diet good not enough exercise and has been doing ok Essential hypertension 20256495 I10 excellent levels chk at home too Osteoarthritis 573461559 M19.90 still symptomati c still and issue at times History of aortic valve replacement 5720691597 100 Z95.4 will have him echo his aortic valve in a follow up as he is having atypical chest pain and aortic murmur [id number] Bay Aguila [facility] [address] [facility] [address] 07/28/2019 08:55:06 07/28/2019 09:12:41 Diabetes mellitus 25784730 E11.9 well a1c great at 5.8 has not gained weight diet good not enough exercise and has been doing ok Essential hypertension 31670406 I10 excellent levels chk at home too Gout 12115956 M10.9 quiet and is very good at being careful with diet Anxiety 09978806 F41.9 uses med to help sleep [id number] Bay Aguila [facility] [address] [facility] [address] 08/15/2019 10:09:52 08/15/2019 11:51:54 Gout 90647323 M10.9 Diabetes mellitus 528435 09 E11.9 diet and exercise controlled Essential hypertension 67239713 I10 very well controlled Osteoarthritis 847561277 M19.90 [id number] Bay Aguila [facility] [address] [facility],[place] [address] 11/01/2019 09:07:38 11/01/2019 09:54:49 Essential hypertension 53337216 I10 excellent levels chk at home too Diabetes mellitus 940850 09 E11.9 well a1c great at 5.8 diet good not enough exercise and has been doing ok Family his tory of cancer of colon [id number] Z80.0 [id number] Bay Aguila DO [facility] Internal Medicine [address] [facility] [address],[place] [address] 01/22/2020 09:55:33 01/22/2020 14:33:12 Spasm of back muscles 713686165 M62.830 the pt is having an episode of muscle spasm will reassess with XR and need for PT at a later date when the pandemic is no longer [id number] Bay Aguila DO [facility] [address] [facility] [address],[place] [address] 01/29/2020 11:01:44 01/29/2020 11:49:53 Lumbar radiculopathy 567097178 M54.16 pt is still having pain states over the weekend he was in severe pain and now is having shooting pain and numbness and tingling down his left leg will treat with prednisone for inflammati on most likely the cause around pinched/en trapped nerve and possible herniated disc, stop his naproxen and send for ortho referral to be evaluated [id number] Bay Aguila DO [facility] Internal Medicine [address] [facility],[place] [address] 04/01/2020 13:53:58 04/01/2020 14:48:17 Adult health examination 245091037 Z00.00 overall has done quite well and is pleased he has turned his health around now cont and will be getting his vaccines Screening for cardiovascular system disease 235192339 Z13.6 Screening for malignant neoplasm of colon 105036828 Z12.11 relates still waiting to see about getting colonoscop y despite his hx of endocardit is which originated in a rectal fissure Essential hypertension 34231854 I10 excellent levels chk at home too Diabetes mellitus 139206 09 E11.9 well a1c great at 5.8 diet good sometimes not enough exercise and has been doing ok Anxiety 99572593 F41.9 uses med to help sleep [id number] Bay Aguila DO [facility] Internal Medicine [address] [facility],[place] [address] 05/31/2020 09:27:23 05/31/2020 10:26:34 Diabetes mellitus 34578566 E11.9 well a1c great at 5.8 diet good sometimes not enough exercise and has been doing ok Gout 45424753 M10.9 quiet and is very good at being careful with diet Essential hypertension 95233366 I10 excellent levels chk at home too Osteoarthritis 504842172 M19.90 still symptomati c still and issue at times Edema of l ower extremity 646241780 R60.0 [id number] Bay Aguila [facility] Internal Medicine [address] [facility],[place] D [facility] [place] [place] [address] 09/13/2020 13:26:13 09/13/2020 13:50:01 Diabetes mellitus 80008405 E11.9 well a1c great at 5.6 and was 5.8 diet good sometimes not enough exercise and has been doing ok Essential hypertension 68549169 I10 excellent levels chk at home too [id number] Bay Aguila [facility] Internal Medicine [address] [facility],[place] [address] 12/23/2020 10:49:39 12/23/2020 14:45:36 Acute sinusitis 14832608 J01.00 given the concurrent start of nasal congestion , rhinorrhea and then balance concerns, very possible he has a sinus infection will trial abx and fu if no change [id number] Bay Aguila [facility] Internal Medicine [address] [facility],[place] [address] 01/08/2021 10:10:39 01/08/2021 10:55:45 Essential hypertension 73546559 I10 excellent levels chk at home too Diabetes mellitus 782247 09 E11.9 well a1c great and is still at 5.6 befire he was at 5.6 and was 5.8 diet good sometimes not enough exercise and has been doing ok Chronic re nal insufficiency 590056366 N18.9 has been stable and Anxiety 76750995 F41.9 uses med to help sleep [id number] Bay Aguila [facility] Internal Medicine [address] [facility],[place] [address] 04/23/2021 09:20:37 04/23/2021 09:43:48 Anxiety 36446341 F41.9 uses med to help sleep and needs refill Diabetes mellitus 497362 09 E11.9 well a1c great and is still at 5.6 befire he was at 5.6 and was 5.8 diet good sometimes not enough exercise and has been doing ok Essential hypertension 72058938 I10 excellent levels chk at home too but given gfr decrease we will switch off furosemide and use low dose lisinopril Chronic ki dney disease 229913760 N18.9 we will stop the lasix and add low dose lisinopril [id number] Bay Aguila [facility] Internal Medicine [address] [facility],[place] [address] 05/23/2021 10:39:50 05/23/2021 11:11:32 Diabetes mellitus 74059781 E11.9 well a1c great and is still at 5.6 befire he was at 5.6 and was 5.8 diet good sometimes not enough exercise and has been doing ok Gout 19744298 M10.9 quiet and is very good at being careful with diet Edema 200509335 R60.9 resolving foot edema L>R in feet Renal insufficiency 7231 70914 N28.9 creat was 1.5 and now since stopping the furosemide has dropped to 1.3 creat Headache 12317979 R51.9 this bothers me and we will have him get a ct scan of the brain as this is such a odd presentati on at the top of the parietal scalp midline no other neuro deficits [id number] Bay Aguila DO [facility] Internal Medicine [address] [facility] [place] [address] 06/30/2021 13:37:34 06/30/2021 14:16:16 Diabetes mellitus 30344931 E11.9 well a1c great and is still at 5.6 before he was at 5.6 and was 5.8 diet good sometimes not enough exercise and has been doing ok Edema 457568888 R60.9 resolving foot edema L>R in feet Essential hypertension 04307970 I10 excellent levels chk at home too but given gfr decrease we will switch off furosemide and use low dose lisinopril Headache 01347788 R51.9 ct is negative for headache causes and is reassuring reviewed causes we will try to wean off a lot of his medswill stop the fiorinalst op iron folic acid potassium [id number] Bay Aguila DO [facility] Internal Medicine [address] [facility],[place] [address] 10/14/2021 14:02:42 10/17/2021 10:29:56 Diabetes mellitus 99053829 E11.9 well a1c great and is still at 5.5 and prior was 5.6 before he was at 5.6 and was 5.8 diet good sometimes not enough exercise and has been doing ok Edema 877422865 R60.9 resolving foot edema L>R in feet Essential hypertension 63499341 I10 excellent levels chk at home too but given gfr decrease we will switch off furosemide [id number] Bay Aguila DO [facility] Internal Medicine [address] [facility],[place] [address] 02/02/2022 11:46:20 02/02/2022 14:33:21 Diabetes mellitus 66101172 E11.9 well a1c great and is still at 5.5 and prior was 5.6 before he was at 5.6 and was 5.8 diet good sometimes not enough exercise and has been doing ok Essential hypertension 42940812 I10 excellent levels chk at home too but given gfr decrease we will switch off furosemide Anxiety 01031710 F41.9 uses med to help sleep and needs refill Gout 97219131 M10.9 quiet and is very good at being careful with diet [id number] Bay Aguila DO [facility] Internal Medicine [address] [facility],[place] [address] 06/12/2022 10:46:00 06/12/2022 12:34:45 Diabetes mellitus 77040938 E11.9 well a1c great and is still at 5.4 and was 5.5 and prior was 5.6 before he was at 5.6 and was 5.8 diet goodso we will now GET RID OF HIS DIAGNOSIS OF DIABETES AND CHANGE TO IMP FAST GLUCnot enough exercise and has been doing ok Anxiety 11190059 F41.9 uses med to help sleep and needs refill Essential hypertension 66415668 I10 excellent levels chk at home too but given gfr decrease we will switch off furosemide Impaired f asting glycemia 024055231 R73.01 this will be his new dx [id number] Bay Aguila [facility] Internal Medicine [address] [facility],[place] [address] 09/15/2022 14:34:15 09/15/2022 16:13:04 Acute low back pain 512127069 M54.59 start on XR lumbar spine Lumbar radiculopathy 128 987732 M54.16 start on pred and oxy for severe lumbar spine pain and ROMagreed to work upwill need XR and MRI [id number] Bay Aguila [facility] Internal Medicine [address] [facility],[place] [address] 10/21/2022 08:51:56 10/21/2022 10:34:31 Impaired fasting glycemia 947602977 R73.01 this will be his new dxa1c ius still great at 5.6 Essential hypertension 73575650 I10 excellent levels chk at home too but given gfr decrease we will switch off furosemide Active or passive immunization 124275675 Z23 patient advised he is due for flu shot & tdap [id number] Bay Aguila [facility] Internal Medicine [address] [facility],[place] [facility] [address] 01/27/2023 09:05:15 01/27/2023 10:11:33 Degeneration of lumbar intervertebral disc 34088087 M51.36 has been pretty much pain free doing ok Diabetes mellitus 987656 09 E11.9 well a1c great and is still at 5.5 5.4 and was 5.5 and prior was 5.6 before he was at 5.6 and was 5.8 diet goodso we will now GET RID OF HIS DIAGNOSIS OF DIABETES AND CHANGE TO IMP FAST GLUCnot enough exercise and has been doing ok Essential hypertension 41118049 I10 excellent levels chk at home too but given gfr decrease we will switch off furosemide Gout 18222930 M10.9 quiet and is very good at being careful with diet Impaired f asting glycemia 689535086 R73.01 this will be his new dxa1c ius still great at 5.6 [id number] Bay Aguila [facility] Internal Medicine [address] [facility],[place] [address] 03/02/2023 10:44:49 03/02/2023 11:10:37 Abscess 326581039 L02.31 resolved [id number] Bay Aguila [facility] Internal Medicine [address] [facility],[place] [address] 07/12/2023 10:29:10 07/13/2023 11:19:55 Essential hypertension 44595436 I10 excellent levels chk at home too but given gfr decrease we will switch off furosemide Impaired f asting glycemia 369956614 R73.01 this will be his new dx a1c is [id number] ius still great at 5.6 Lumbar radiculopathy 128 213979 M54.16 has been stable History of aortic valve replacement 5731277591 100 Z95.4 will have him echo his aortic valve in a follow up as he is having atypical chest pain and aortic murmur Atrial fibrillation 4943 6004 I48.91 chronic on eliquis [id number] Bay Aguila [facility] Internal Medicine [address] [facility],[place] [address] 11/05/2023 09:10:09 11/05/2023 09:48:10 Impaired fasting glycemia 667573509 R73.01 this will be his new dx a1c asb his a1c is 5.5 5.4 in prior at 5.6 Atrial fibrillation 4943 6004 I48.91 completely asymptomat ic Essential hypertension 50287426 I10 excellent levels chk at home too butis sl elevated in the am so we will have him take his meds at night [id number] Bay Aguila [facility] Internal Medicine [address] [facility],[place] [address] 10/06/2023 10:18:40 10/06/2023 15:13:18 Cervical radiculopathy 10069304 M54.12 will set up with XR'ssounds like radiculopa thy related to a probable disc bulge sitting at C5 to C6 based on his symptoms [id number] Bay Aguila [facility] Internal Medicine [address] [facility],[place] [facility] [place] [place] [address] 12/22/2023 09:20:55 12/22/2023 10:57:06 Onycholysis due to fungal infection of nail 101725388 L60.1 will set up with two week course and f/u to see how pt does on it [id number] Bay Aguila [facility] Internal Medicine [address] [facility], ite [address] [facility] [place] [place] [address] 02/25/2024 09:01:11 02/25/2024 10:06:53 Depression screening 955532301 Z13.31 negative Atrial fibrillation 4943 6004 I48.91 completely asymptomat ic Impaired f asting glycemia 615601046 R73.01 this will be his new dx a1c asb his a1c is 5.7 5.5 5.4 in [id number] prior at 5.6 Essential hypertension 03446614 I10 excellent levels chk at home too butis sl elevated in the am so we will have him take his meds at night Gout 36211264 M10.9 quiet and is very good at being careful with diet Edema 144335662 R60.9 resolving foot edema L>R in feet History of aortic valve replacement 6280443524 100 Z95.4 will have him echo his aortic valve in a follow up Dysplastic nevus of skin 936642475 D22.9 [id number] Bay Aguila [facility] Internal Medicine [address] [facility],[place] [address] 06/28/2024 09:14:56 06/28/2024 09:47:55 Atrial fibrillation 60656840 I48.91 completely asymptomat ic Mitral adalberto nosis with insufficiency 004958449 I05.2 here and is followed by cariology Impaired f asting glycemia 067801383 R73.01 still doing fantastic a1c is 5.6 [id number] Bay Aguila [facility] Internal Medicine [address] [facility],[place] [address] 12/15/2024 08:46:55 12/15/2024 12:11:37 Atrial fibrillation 54227146 I48.91 completely asymptomat ic Depression screening 171 818012 Z13.31 negative Essential hypertension 38549589 I10 bp has been excellentr elates home bp ok Edema 068299684 R60.9 resolving foot edema L>R in feet no further need for tx Impaired f asting glycemia 596900209 R73.01 still doing fantastic a1c is 5.9will cont to monitor Sick sinus syndrome 3608 3008 I49.5 stable pace maker working well and followed by cardiol Cardiac christianne velásquezaker in situ 743922008 Z95.0 as above Gout 31936580 M10.9 quiet and is very good at being careful with diet [id number] Bay Aguila DO [facility] Internal Medicine [address] [facility],[place] [address] 12/29/2024 14:38:08 12/29/2024 15:56:04 Acute left otitis media 242406778 H65.02 will set up with amoxicilli n Health Concerns Section Related Observation LastModified by Organization Detai ls LastModified Time None Recorded Concern Status LastModified by Organization Details LastModified Time None Recorded Advance Directives Directive None Recorded Payers Insurance Date Sequence Insurance Name Policy Number Policy Luis Covered Member ID Luis Member ID Guarantor Name 03/31/2025 1 [place] [employer] Dustin Weathers [id number] Dustin Weathers 04/10/2025 2 A[employer] (MEDICARE SUPPLEMENT) Dustin Weathers [id number] Dustin Weathers Notes Date Note Type Note Provider Name and Address Organization Details Recorded Time 4 text/htm l c/o fungal infection, second toe right foot actually has it on both feet, same toemore pronounced on the right foot though, also has more discomfortpart due to the fungus and part due to the callous formed between the big toe and second toe due to friction between the two toes suggested wider shoes, and something between toes and start an anti-fungal medication CHRISTIANNE CADET [address] [facility], [place], [address], [facility] Internal Medicine 12/22/2023 10:05:28 4 text/htm l here for rechk and is doing ok overallstates no cp no sob unless exertinghas been doing a lot of fishing Bay Carlson Tierra, DO [address] [place] [address], [phone], [facility] Medicine 02/25/2024 09:44:45 4 text/htm l Care Management - DiabetesReported bypatient.Self Care:seeing eye doctor yearly for dilated eye exam; checking feet regularly; normal range of home blood sugars (in the low 100s); no side effects from medications Associated Symptoms:symptoms are usually well controlled; no fatigue; no dizziness; no excessive sweating; no headaches; no confusion; no increased thirst; no increased appetite; no increased urination; no blurred vision; no numbness of feet; no calluses on feetCare Management - HypertensionReported bypatient.Self Care:not under emotional stress Severity:symptoms are improving; does not interfere with daily activities Associated Symptoms:no dizziness; no lightheadedness; no chest pain; no shortness of breath; no palpitations; no edema; no calf muscle cramps; no blurred vision; no confusion; no headaches; no fatigue here for rechk doing ok overallstates that will be getting a nuclear scan soon due to some exertional dyspnearelates doing ok overall doing well with diet Bay Carlson Tierra, [address] [place] [address], [phone], [facility] 06/28/2024 09:44:02 5 text/htm l Care Management - DiabetesReported bypatient.Self Care:seeing eye doctor yearly for dilated eye exam; checking feet regularly; normal range of home blood sugars (in the low 100s); no side effects from medications Associated Symptoms:symptoms are usually well controlled; no fatigue; no dizziness; no excessive sweating; no headaches; no confusion; no increased thirst; no increased appetite; no increased urination; no blurred vision; no numbness of feet; no calluses on feetCare Management - HypertensionReported bypatient.Self Care:not under emotional stress Severity:symptoms are improving; does not interfere with daily activities Associated Symptoms:no dizziness; no lightheadedness; no chest pain; no shortness of breath; no palpitations; no edema; no calf muscle cramps; no blurred vision; no confusion; no headaches; no fatigue here for rechk and is doing ok overall no major issues and is changing pharmacies againhas been to dermhas been raking an otc gout supp that he feels is helping prevent any attacksnote pt addendum relates that he has noticed some chest pressure with exertion priorhere for rechk doing ok overallstates that will be getting a nuclear scan soon due to some exertional dyspnearelates doing ok overall doing well with diet Bay Aguila, [address] [place], [address], [facility] Medicine 12/15/2024 09:28:10 5 text/htm l c/o left ear pain the patient has a left ear painthe patient reports that it started a few days ago and has gotten progressively more uncomfortable notes hearing changes and painno d/c from the ear canal no recent sick contacts he is aware of had hx of sig abscess in the ear when he was a kid nasal congestion prior to this due to allergies, probably contributed to serous effusion then inf CHRISTIANNE CADET [address] [place], [address], [facility] Internal Medicine 12/29/2024 15:17:47
[2025-04-10 14:12] LABS: Hemoglobin A1C 158.8400 umol/L; Total Hemoglobin (HGBA1C) 3766.5175 umol/L
[2025-04-10 14:54] LABS: Alanine Aminotransferase 22 U/L (0-40); Albumin Level 4.2 g/dL (3.5-5.0); Alkaline Phosphatase 64 U/L (39-117); Anion Gap 14 (12-20); Aspartate Amino Transferase 27 U/L (5-37); Blood Urea Nitrogen 13 mg/dL (9-16); Calcium 9.2 mg/dL (8.4-10.2); Carbon Dioxide 24 mmol/L (22-29); Chloride 106 mmol/L (96-108); Estimated Glomerular Filt Rate > 60; Potassium 4.0 mmol/L (3.3-5.1); Sodium 140 mmol/L (135-145); Total Protein 6.5 g/dL (6.5-8.0)
== END 2025-04-10 09:42 | disposition home or self-care (01) ==
LOC: HO.MANLDS 09:41
PROVIDERS: Visit Provider Internal Medicine
DX: R73.01 Impaired fasting glucose (principal)
CPT/HCPCS: 36415; 80053; 83036

== ENCOUNTER 2025-08-01 09:03 | Outpatient (REF) | payer MEDICARE, SELFPAY ==
--- OUTSIDE RECORDS SUMMARY | 2025-08-01 09:45 | XMS_ITS | Encounter Summary ---
Author Organization [facility] Address [address] [facility] [address] [place] [address] Phone Care Team Providers Care Community Health Counselor Name Role Phone Bay Mayorga DO Primary Care Provider Encounter Details Date Type Department Care Team (Late Contact Info) Description 09/22/2022 Procedure Pass [address] [address] Social History Tobacco Use Types Packs/Day Years Used Date Smoking Tobacco: Former Cigarettes 1 10 2 1971 Smokeless Tobacco: Never Alcohol Use Standard Drinks/Week Comments Not Currently 0 (1 standard drink = 0.6 oz pur e alcohol) Quit alcohol use in 2013 Sex and Gender Information Value Date Recorded Sex Assigned at Male 02/01/2019 1:11 PM EDT Legal Sex Male 10:05 PM EDT Gender Identity Male 02/01/2019 1:11 PM EDT Sexual Orientation Straight 02/01/2019 1: 11 PM EDT Occupation Industry 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 Start Date Job End Date 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 Not on file Not on file Not on file documented as of this encounter Plan of Treatment Upcoming Encounters Date Type Department Care Team (Late Contact Info) Description 06/18/2025 Procedure Pass Echo [facility] [address] [place] [address] 12/17/2025 1:00 PM EDT Appointment Echo Lab [address] [place] [address] Dionisio Oglesby MD [address] [facility], [address] [place] [address] [email or web address] 12/31/2025 1:40 PM EDT Office Visit [facility] [address] [place] [address] [address]rd Floor, [address] [place] [address] Dionisio Oglesby MD [address] [facility], [address] [place] [address] [email or web address] documented as of this encounter Visit Diagnoses Not on filedocumented in this encounter Care Teams Community Health Counselor Relationship Specialty Start Date End Date Bay Mayorga DO [address] [place] [address] [place] [address] PCP - General 09/30/17 documented as of this encounter Additional Source Comments The information contained in this document represents components of the legal health record. It is not the complete legal health record.[facility]
--- OUTSIDE RECORDS SUMMARY | 2025-08-01 09:45 | XMS_ITS | Encounter Summary ---
Author Organization [facility] Address [address] [place] [address] [address] [place] [address] Phone Care Team Providers Care Resizer Operator Name Role Phone Bay Mayorga Primary Care Provider [phone] Encounter Details Date Type Department Care Team (Late st Contact Info) Description 12/14/2023 Procedure Pass Echo [facility] [address] [place] [address] Social History Tobacco Use Types Packs/Day Years Used Date Smoking Tobacco: Former Cigarettes 1 10 1 962 - 1971 Smokeless Tobacco: Never Alcohol Use Standard Drinks/Week Comments Not Currently 0 (1 standard drink = 0.6 oz pur e alcohol) Quit alcohol use in 2013 Education Answer Date Recorded Are you interested in more education? Not on elena e 01/22/2023 Are you concerned about learning? Not on file 01/22/2023 No 01/22/2023 No 01/22/2023 Digital Access Answer Date Recorded No 02/16/2023 No 02/16/2023 Reliable internet access at home? Not on file 02/16/2023 Device with a working camera? Not on file Intimate Partner Violence Answer Date R ecorded Are you denied basic needs s uch as food, clothing, or medical care? No 06/04/2023 In the past 12 months have y ou been in a relationship with a person who hurts, threatens, or tries to control you? No 06/04/2023 Are you denied basic needs s uch as food, clothing, or medical care? No 06/04/2023 In the past 12 months have y ou been in a relationship with a person who hurts, threatens, or tries to control you? 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 file Not on file Not on file documented as of this encounter Plan of Treatment Upcoming Encounters Date Type Department Care Team (Late st Contact Info) Description 06/18/2025 Procedure Pass [facility] [address] [place] [address] 12/17/2025 1:00 PM EDT Appointment Echo Lab [address] [place] [address] Dionisio Oglesby MD [address] [place] [address] 12/31/2025 1:40 PM EDT Office Visit [facility] [address] [place] [address] [address]rd Floor, [address] [place] [address] Dionisio Oglesby MD [address] [place] [address], [address] [address] documented as of this encounter Visit Diagnoses Not on filedocumented in this encounter Care Teams Resizer Operator Relationship Specialty Start Date End Date Bay Mayorga DO [address] [facility] [place] [address] [place] [address] PCP - General 09/30/17 documented as of this encounter Additional Source Comments The information contained in this document represents components of the legal health record. It is not the complete legal health record.[facility]
--- OUTSIDE RECORDS SUMMARY | 2025-08-01 09:45 | XMS_ITS | Encounter Summary ---
Author Organization [facility] Address [address] [place] [address] Phone Care Team Providers Care Laundry Worker Name Role Phone Bay Mayorga DO Primary Care Provider [phone] Encounter Details Date Type Department Care Team (Late Contact Info) Description 05/23/2021 Procedure Pass [facility], Ct Scan - [address] [address] Social History Tobacco Use Types Packs/Day Years Used Date Smoking Tobacco: Former Cigarettes 1 10 962 - 1971 Smokeless Tobacco: Never Alcohol Use Standard Drinks/Week Comments Not Currently 0 (1 standard drink = 0.6 oz pur e alcohol) Sex and Gender Information Value Date Recorded Sex Assigned at Male 02/01/2019 1:11 PM EDT Legal Sex Male 10:05 PM EDT Gender Identity Male 02/01/2019 1:11 PM EDT Sexual Orientation Straight 02/01/2019 1: 11 PM EDT documented as of this encounter Plan of Treatment Upcoming Encounters Date Type Department Care Team ([facility] Contact Info) Description 06/18/2025 Procedure Pass [facility] [address] [place] [id number] 12/17/2025 1:00 PM EDT Appointment Echo [facility] [address] [place] [address] Dionisio Oglesby MD [address] [facility], [address] [place] [address] 12/31/2025 1:40 PM EDT Office Visit [facility] [address] [facility] 3rd Floor, [address] [place] [address] Dionisio Oglesby MD [address] [facility], [address] [place] [address] [email or web address] documented as of this encounter Visit Diagnoses Not on filedocumented in this encounter Care Teams Laundry Worker Relationship Specialty Start Date End Date Bay Mayorga DO [address] [facility] [place] [address] [place] [address] PCP - General 09/30/17 documented as of this encounter Additional Source Comments The information contained in this document represents components of the legal health record. It is not the complete legal health record.[facility]
--- OUTSIDE RECORDS SUMMARY | 2025-08-01 09:45 | XMS_ITS | Encounter Summary ---
Author Organization [facility] Address [facility] [employer] [facility] [address] [place] [address] Phone Care Team Providers Care Film Tests Checker Name Role Phone Bay Mayorga Primary Care Provider [phone] Reason for Referral * MRI/CAT Scan - Closed Specialty Diagnoses / Procedures Referred By Contac t Referred To Contact Radiology Diagnoses Other intervertebral disc degeneration, lumbar region Procedures MRI Lumbar Spine [address] PA [address] [facility] [place] [address] Phone: tel: fax: Referral ID Status Reason Start Date Expiration Date Visits Re quested Visits Authorized [id number] Closed 09/22/2022 09/22/2023 1 1 Encounter Details Date Type Department Care Team (Latest Contact Info) Description 09/22/2022 Transcribe Orders Virtual Department [address] [place] [id number] PA [address] [facility] [address] [place] [address] Other intervertebral disc degeneration, lumbar region (Primary Dx) Social History Tobacco Use Types Packs/Day Years [...] 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 Not on file Not on file documented as of this encounter Plan of Treatment Upcoming Encounters Date Type Department Care Team (Late st Contact Info) Description 06/18/2025 Procedure Pass [facility] [address] [place] [address] 12/17/2025 1:00 PM EDT Appointment Echo Lab [address] [place] [address] Dionisio Oglesby MD [address] [place] [address], [address] [address] [email or web address] 12/31/2025 1:40 PM EDT Office Visit [facility] [address] [place] [address] 3rd Floor, [address] [place] [address] Dionisio Oglesby MD [address] [place] [address], [address] [address] [email or web address] documented as of this encounter Results * MRI LUMBAR SPINE (NEURO) WITHOUT CONTRAST (09/26/2022 2:28 PM EST) Anatomical Region Laterality Modality L-spine Magnetic Resonan ce 09/26/2022 3:19 PM EST Impressions 09/27/2022 10:36 AM EST Lower spine degenerative changes as described, including: -Moderate bilateral foraminal stenosis at L2-L3 and L3-L4. Moderate left foraminal stenosis at L4-L5 and L5-S1. -Moderate spinal canal stenosis at L3-L4. -Right paracentral disc extrusion at L4-L5, which contacts but does not significantly displace the descending right L5 nerve roots. Narrative 09/27/2022 10:36 AM EST MRI LUMBAR SPINE (NEURO) WITHOUT CONTRAST TECHNIQUE: MRI LUMBAR SPINE (NEURO) WITHOUT CONTRAST Multi-sequence, multi-planar MRI of the lumbar spine was performed without intravenous contrast. COMPARISON: None FINDINGS: LUMBAR SPINE: Alignment and Vertebrae: Normal alignment. No compression fracture. Marrow: No bone marrow replacing lesion. Discs and Endplates: Disc space narrowing which is severe at L5-S1 and moderate at L1-L2, mild elsewhere. Conus: Normal. Soft Tissues: Normal. No prevertebral edema. Other Findings: Bilateral renal cysts, partially imaged. Likely cholelithiasis, seen on localizer images. Findings by level: T12-L1: Normal. No spinal or foraminal stenosis. L1-L2: Diffuse disc bulge. Mild bilateral foraminal stenosis. No significant spinal canal stenosis. L2-L3: Diffuse disc bulge. Bilateral facet arthropathy. Ligamentum flavum hypertrophy. Moderate bilateral foraminal stenosis. Mild to moderate spinal canal stenosis. L3-L4: Diffuse disc bulge. Bilateral facet arthropathy. Ligamentum flavum hypertrophy. Moderate bilateral foraminal stenosis. Moderate spinal canal stenosis. L4-L5: Diffuse disc bulge. Superimposed right paracentral extrusion, with approximately 8 mm of caudal migration (2:11), which contacts but does not significantly displace the descending right L5 nerve roots. Bilateral facet arthropathy.. Ligamentum flavum hypertrophy. Moderate left and mild right foraminal stenosis. No significant central spinal canal stenosis. L5-S1: Central disc protrusion. Bilateral facet arthropathy. Moderate left and mild right foraminal stenosis. No significant spinal canal stenosis. Procedure Note Robi Frausto MD - 09/27/2022 MRI LUMBAR SPINE (NEURO) WITHOUT CONTRAST TECHNIQUE: MRI LUMBAR SPINE (NEURO) WITHOUT CONTRAST Multi-sequence, multi-planar MRI of the lumbar spine was performed withoutintravenous contrast. COMPARISON: None FINDINGS: LUMBAR SPINE: Alignment and Vertebrae: Normal alignment. No compression fracture. Marrow: No bone marrow replacing lesion. Discs and Endplates: Disc space narrowing which is severe at L5-S1 andmoderate at L1-L2, mild elsewhere. Conus: Normal. Soft Tissues: Normal. No prevertebral edema. Other Findings: Bilateral renal cysts, partially imaged. Likelycholelithiasis, seen on localizer images. Findings by level: T12-L1: Normal. No spinal or foraminal stenosis. L1-L2: Diffuse disc bulge. Mild bilateral foraminal stenosis. Nosignificant spinal canal stenosis. L2-L3: Diffuse disc bulge. Bilateral facet arthropathy. Ligamentum flavumhypertrophy. Moderate bilateral foraminal stenosis. Mild to moderatespinal canal stenosis. L3-L4: Diffuse disc bulge. Bilateral facet arthropathy. Ligamentum flavumhypertrophy. Moderate bilateral foraminal stenosis. Moderate spinal canalstenosis. L4-L5: Diffuse disc bulge. Superimposed right paracentral extrusion, withapproximately 8 mm of caudal migration (2:11), which contacts but does notsignificantly displace the descending right L5 nerve roots. Bilateralfacet arthropathy.. Ligamentum flavum hypertrophy. Moderate left and mildright foraminal stenosis. No significant central spinal canal stenosis. L5-S1: Central disc protrusion. Bilateral facet arthropathy. Moderate leftand mild right foraminal stenosis. No significant spinal canal stenosis. IMPRESSION: Lower spine degenerative changes as described, including: -Moderate bilateral foraminal stenosis at L2-L3 and L3-L4. Moderate leftforaminal stenosis at L4-L5 and L5-S1. -Moderate spinal canal stenosis at L3-L4. -Right paracentral disc extrusion at L4-L5, which contacts but does notsignificantly displace the descending right L5 nerve roots. Ghazal [facility]A [facility] [place] XSPECIALTY Final Res ult documented in this encounter Visit Diagnoses Diagnosis Other intervertebral disc degeneration, lumbar region- Primary Other intervertebral disc degeneration, lumbar region documented in this encounter Care Teams Film Tests Checker Relationship Specialty Start Date End Date Bya Mayorga DO [address] [place] [address] [email or web address] PCP - General 09/30/17 documented as of this encounter Additional Source Comments The information contained in this document represents components of the legal health record. It is not the complete legal health record.[facility]
--- OUTSIDE RECORDS SUMMARY | 2025-08-01 09:45 | XMS_ITS | Encounter Summary ---
Author Organization [facility] Address [address] [place], [place] [address] [place] [address] Phone Care Team Providers Care Tallow Refiner Name Role Phone Bay Mayorga DO Primary Care Provider [phone] Reason for Referral * MRI/CAT Scan - Closed Specialty Diagnoses / Procedures Referred By Markus ahmadi Referred To Contact Radiology Diagnoses Nonintractable headache, unspecified chronicity pattern, unspecified headache type Procedures CT Head Bay Mayorga DO Phone: tel: fax: [email or web address] Referral ID Status Reason Start Date Expiration Date Visits Re quested Visits Authorized [id number] Closed 05/23/2021 05/23/2022 1 1 Encounter Details Date Type Department Care Team (Late st Contact Info) Description 05/23/2021 Transcribe Orders Virtual Department [address] [place] [address] Bay Mayorga DO [address] [facility] [place] [address] [place] [address] [email or web address] Nonintractable headache, unspecified chronicity pattern, unspecified headache type (Primary Dx) Social History Tobacco Use Types [...] Description 06/18/2025 Procedure Pass [facility] [address] [place] [address] 12/17/2025 1:00 PM EDT Appointment Echo Lab [address] [place] [address] Dionisio Oglesby MD [address] [place] [address], [address] [address] [email or web address] 12/31/2025 1:40 PM EDT Office Visit [facility] [address] [place] [address] 3rd Floor, [address] [place] [address] Dionisio Oglesby MD [address] [place] [address], [address] [address] [email or web address] documented as of this encounter Results * CT HEAD WITHOUT CONTRAST (06/24/2021 8:10 AM EDT) Anatomical Region Laterality Modality Head Computed Tomogra phy 06/24/2021 8:13 AM EDT Impressions 06/24/2021 8:23 AM EDT 1.No acute intracranial findings. 2.Interval mild white matter hypodensity which is likely due to chronic microangiopathy. 3.Mild bilateral cavernous carotid and distal vertebral artery atherosclerosis. Narrative 06/24/2021 8:23 AM EDT COMPARISON: 12/23/2013. TECHNIQUE: Nonenhanced head CT from skull base to vertex with multi-planar reformats. Manual dose reduction technique tailored for patient and site of imaging. CT HEAD FINDINGS: Brain: There is no acute intracranial hemorrhage, infarct, or intracranial mass. No mass effect, midline shift or extra-axial fluid collections. Alvarado-white matter differentiation is preserved. New mild periventricular white matter hypodensity. Basal cisterns are patent. Pituitary gland is not enlarged. Ventricles: No hydrocephalus. Stable mild enlargement due to atrophy. Vasculature: New mild bilateral cavernous carotid artery and distal vertebral artery atherosclerosis. Orbits: Normal. Mastoids/Middle Ear/Ext Canals/Paranasal Sinuses: Normal. Scalp/Soft Tissues: Unremarkable. Bones: Unremarkable. Procedure Note Jordan Ponce MD - 06/24/2021 COMPARISON: 12/23/2013. TECHNIQUE: Nonenhanced head CT from skull base to vertex with multi- planarreformats. Manual dose reduction technique tailored for patient and siteof imaging. CT HEAD FINDINGS: Brain: There is no acute intracranial hemorrhage, infarct, orintracranial mass. No mass effect, midline shift or extra-axial fluidcollections. Alvarado-white matter differentiation is preserved. New mildperiventricular white matter hypodensity. Basal cisterns are patent.Pituitary gland is not enlarged. Ventricles: No hydrocephalus. Stable mild enlargement due to atrophy. Vasculature: New mild bilateral cavernous carotid artery and distalvertebral artery atherosclerosis. Orbits: Normal. Mastoids/Middle Ear/Ext Canals/Paranasal Sinuses: Normal. Scalp/Soft Tissues: Unremarkable. Bones: Unremarkable. IMPRESSION: 1.No acute intracranial findings. 2.Interval mild white matter hypodensity which is likely due to chronicmicroangiopathy. 3.Mild bilateral cavernous carotid and distal vertebral arteryatherosclerosis. Bay Mayorga DO [facility] CT HEAD/NECK Final Result documented in this encounter Visit Diagnoses Diagnosis Nonintractable headache, unspecified chronicity pattern, unspecified headache type- Primary Nonintractable headache, unspecified chronicity pattern, unspecified headache type documented in this encounter Care Teams Tallow Refiner Relationship Specialty Start Date End Date Bay Mayorga DO [address] [place] [address] PCP - General 09/30/17 documented as of this encounter Additional Source Comments The information contained in this document represents components of the legal health record. It is not the complete legal health record.[facility]
--- OUTSIDE RECORDS SUMMARY | 2025-08-01 09:46 | XMS_ITS | Encounter Summary ---
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 Not on file Not on file documented as of this encounter Plan of Treatment Upcoming Encounters Date Type Department Care Team (Late Contact Info) Description 06/18/2025 Procedure Pass [facility] [address] [place] [address] 12/17/2025 1:00 PM EDT Appointment Echo Lab [address] [place] [address] Dionisio Oglesby MD [address] [facility], [address] [place] [address] 12/31/2025 1:40 PM EDT Office Visit [facility] [address] [place] [address] [address]rd Floor, [address] [place] [address] Dionisio Oglesby MD [address] [facility], [address] [place] [address] documented as of this encounter Visit Diagnoses Not on filedocumented in this encounter Care Teams Senior Medical Writer Relationship Specialty Start Date End Date Bay Mayorga DO [address] [facility] [place] [address] PCP - General 09/30/17 documented as of this encounter Additional Source Comments The information contained in this document represents components of the legal health record. It is not the complete legal health record.[facility]
--- OUTSIDE RECORDS SUMMARY | 2025-08-01 09:46 | XMS_ITS | Encounter Summary ---
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 Not on file Not on file documented as of this encounter Plan of Treatment Upcoming Encounters Date Type Department Care Team (Late Contact Info) Description 06/18/2025 Procedure Pass [facility] [address] [place] [address] 12/17/2025 1:00 PM EDT Appointment Echo Lab [address] [place] [address] Dionisio Oglesby MD [address] [facility], [address] [place] [address] 12/31/2025 1:40 PM EDT Office Visit [facility] [address] [place] [address] 3rd Floor, [address] [place] [address] Dionisio Oglesby MD [address] [facility], [address] [place] [address] documented as of this encounter Visit Diagnoses Not on filedocumented in this encounter Care Teams Residential Care Officer Relationship Specialty Start Date End Date Bay Mayorga DO [address] [facility] [place] [address] PCP - General 09/30/17 documented as of this encounter Additional Source Comments The information contained in this document represents components of the legal health record. It is not the complete legal health record.[facility]
--- OUTSIDE RECORDS SUMMARY | 2025-08-01 09:46 | XMS_ITS | Clinical Summary ---
Author Organization [facility] Address [address] [address] Phone Care Team Providers Care Analog Circuit Designer Name Role Phone Bay Mayorga Primary Care Provider [phone] Allergies No known active allergies Medications therapeutic multivitamin tablet Take 1 tablet by mouth daily. Active amLODIPine (NORVASC) 5 MG tablet Take 1 tablet (5 mg total) by mouth daily. 90 tablet 3 5 Active ELIQUIS 5 mg tabletIndications :Persistent atrial fibrillation TAKE 1 TABLET BY MOUTH TWICE DAILY 180 tablet 3 5 Active losartan (COZAAR) 50 MG tabletIndications :Benign essential hypertension Take 1 tablet (50 mg total) by mouth 2 (two) times a day. 180 tablet 3 5 Active metoprolol succinate (TOPROL-XL) 25 MG 24 hr tabletIndications :Benign essential hypertension TAKE 1 TABLET BY MOUTH DAILY 90 tablet 3 5 Active furosemide (LASIX) 20 MG tabletIndications :Medication refill Take 2 tablets (40 mg total) by mouth daily. 180 tablet 3 5 Active colchicine (COLCRYS) 0.6 mg tablet PRN Active Active Problems Problem Noted Date Diagnosed Date Ascites 05/21/2025 Other spondylosis, lumbar region 05/21/2025 Class 1 obesity 05/21/2025 Colonic polyp 05/21/2025 Cardiac pacemaker in situ 12/15/2024 Sick sinus syndrome 12/15/2024 Mitral regurgitation and mitral stenosis 024 Chronic heart failure with preserved ejection fr action 06/15/2024 Assessment & Plan (01/04/2025 9:35 AM EDT): Doing better on Lasix. Heart failure teaching points reviewed. Updating echo. Follow-up any change. Cervical radiculopathy 10/06/2023 Persistent atrial fibrillation 05/03/2023 Assessment & Plan (01/04/2025 9:36 AM EDT): Adequately anticoagulated on Eliquis 5 mg twice daily. Continue metoprolol 25 mg daily (patient had about 18 beats of VT for 12 seconds and the rate was about 150 bpm per pacemaker without symptoms, so he was started back on beta-kala). He is not endorsing any specific symptoms of atrial fibrillation at this time. Heart block AV second degree 01/07/2023 Overview (01/07/2023): 01/07/2023 electrocardiogram showed severe sinus bradycardia heart rate from 44 with second-degree type I heart block and asymptomatic Assessment & Plan (01/04/2025 9:34 AM EDT): high-grade to complete heart block noted on strip review from stress testing. On 07/07/2024, patient had a dual-chamber Medtronic pacemaker implanted at [facility] by Dr. Lambert. Patient has no device related complaints. Device is transmitting successfully remotely which is due in 2 days. Assessment & Plan (01/07/2023 9:08 AM EDT): 01/07/2023 electrocardiogram showed severe sinus bradycardia heart rate from 44 with second-degree type I heart block and asymptomatic Because of severe bradycardia heart rate of 43 we will proceed to a Holter monitor, a stress test and echocardiogram Benign essential hypertension 01/07/2023 Assessment & Plan (01/04/2025 9:35 AM EDT): Blood pressure is at goal in the office today. Continue current medications and doses. History of aortic valve replacement with tissue graft 01/07/2023 Overview (01/07/2023): 2013 Percardial tissue valve Aortic Model [id number] size 25 MM Assessment & Plan (01/04/2025 9:33 AM EDT): 2013. We are updating an echo. Assessment & Plan (01/07/2023 9:06 AM EDT): Patient has been doing well since his bioprosthetic aortic valve replacement Apri 2013 Percardial tissue valve Aortic Model [id number] size 25 MM His last echocardiography was 2019 we will do an echocardiogram particularly because he has developed second-degree heart block Spinal stenosis of lumbar region 09/29/2022 Degeneration of lumbar intervertebral disc 09/18 Acute low back pain 09/15/2022 Lumbar radiculopathy 09/15/2022 Impaired fasting glucose 06/12/2022 Incarcerated umbilical hernia 05/27/2022 Anxiety 01/08/2021 Type 2 diabetes mellitus 09/16/2018 Gout 06/03/2018 Harmful use of alcohol 05/02/2018 Endocarditis 05/02/2018 Overview (05/21/2025): H/O Encounters Date Type Department Care Team Description 06/18/2025 1:20 PM EDT Office Visit [facility] [address] Floor, [address] [place] [address] Dionisio Oglesby MD History of aortic valve replacement with tissue graft (Primary Dx); Persistent atrial fibrillation; Chronic heart failure with preserved ejection fraction; Presence of prosthetic heart valve 06/13/2025 7:57 AM EDT - 06/13/2025 11:59 PM EDT Hospital Encounter [facility] [place] [address] Dionisio Oglesby MD Discharge Disposition: Home or Self Care 06/12/2025 Orders Only [facility] [address] Floor, [address] [place] [address] Dionisio Oglesby MD Type 2 diabetes mellitus (Primary Dx) 05/21/2025 1:30 PM EDT Office Visit [facility] [address] [address] Jane Vera, HIGH REACH OPERATOR Laceration of left thumb without foreign body without damage to nail, initial encounter (Primary Dx) 05/08/2025 Orders Only [facility] [address] Floor, [address] [place] [address] Provider, MD Ivone from Last 3 Months Immunizations Immunization Administration Dates Next Due COVID-19 (Pre-07/19) Moderna Vaccine, mRNA, PF 01/05/2022,12/18/2020,11/20/2020 INFLUENZA, SPLIT VIRUS, TRIVALENT PF 05/31/2020 Influenza High-Dose Trivalen t Preservative Free IM 08/15/2019,06/04/2018,06/28/2017 Pneumococcal conjugate PCV13 06/04/2018,11/29/19 15 Pneumococcal polysaccharide PPSV23 08/15/2019 Zoster recombinant 09/06/2020,07/09/2020 Zoster unspecified formulation 04/20/2012 Family History Medical History Relation Comments Lung cancer Brother Colon cancer Sister 1 Relation Status Comments Brother Father Mother Sister 1 Sister 2 Alive Social History Tobacco Use Types Packs/Day Years Used Date Smoking Tobacco: Former Cigarettes 1 10 1 962 - 1972 Smokeless Tobacco: Never Tobacco Cessation:Counseling Given: Not Answered Alcohol Use Standard Drinks/Week Comments Not Currently [...] 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 Date 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 Not on file Not on file Last Filed Vital Signs Vital Sign Reading Time Taken Comments Blood Pressure 146/80 06/18/2025 1:20 PM EDT Pulse 84 06/18/2025 1:20 PM EDT Temperature 36.4 C (97.6 F) 05/21/2025 2:19 PM EDT Respiratory Rate 24 05/21/2025 2:19 PM EDT Oxygen Saturation 94% 06/18/2025 1:20 PM EDT Inhaled Oxygen Concentration - - Weight 103.4 kg (228 lb) 06/18/2025 1:20 PM EDT Height 177.8 cm (5' 10 ) 06/18/2025 1:20 PM EDT Body Mass Index 32.71 06/18/2025 1:20 PM EDT Plan of Treatment Upcoming Encounters Date Type Department Care Team (Late st Contact Info) Description 06/18/2025 Procedure Pass Echo Lab [address] [place] [address] 12/17/2025 1:00 PM EDT Appointment Echo Lab [address] [place] [address] Dionisio Oglesby MD [address] [place] [address], [address] [address] 12/31/2025 1:40 PM EDT Office Visit [facility] [address] [place] [address] Dr 3rd Floor, [address] [place] [address] Dioniiso Oglesby MD [address] [place] [address], [address] [address] [email or web address] Health Maintenance Due Date Last Done Comments Adult Td,Tdap Booster 1948 HEMOGLOBIN A1C 1948 DEPRESSION SCREENING 1960 HEPATITIS C SCREENING 1966 INFLUENZA VACCINE (#1) 2025 , 06/30/2023, 06/19/2022, Additional history exists DIABETIC EYE EXAM 05/21/2025 COVID-19 VACCINE ( season) 2025 07/03/2024, 07/12/2023, 06/19/2022, Additional history exists BLOOD PRESSURE 12/16/2025 06/18/2025 CREATININE LEVEL 06/13/2026 06/13/2025, , 12/16/2023, Additional history exists LIPID PANEL 06/13/2026 06/13/2025, 11/26, 02/05/2011, Additional history exists POTASSIUM LEVEL 06/13/2026 06/13/2025, 05/28, 12/16/2023, Additional history exists PNEUMOCOCCAL VACCINES (50+ years) Completed 08/15/2019, 06/04/2018, 11/28/2014, Additional history exists ZOSTER VACCINES Completed 09/06/2020, 06/27, 04/20/2012 RSV VACCINE Completed 07/12/2023 SMOKING STATUS SCREENING (Once After 26 Yrs) Completed 06/18/2025 HEPATITIS A VACCINES Aged Out No long er eligible based on patient's age to complete this topic HIB VACCINES Aged Out No longer eligi ble based on patient's age to complete this topic MENINGOCOCCAL VACCINES (ACWY) Aged Out No longer eligible based on patient's age to complete this topic MENINGOCOCCAL VACCINES (B) Aged Out N o longer eligible based on patient's age to complete this topic Medical Devices Implanted Type Area Grinding And Polishing Laborer Device Identifier Shelf Expiration Date Model / Serial / Lot Nodata-01/02/2014 Implanted:01/02 (Quantity not on file) NODATA Heart Description:Aortic valve Procedures Procedure Name Priority Date/Time Associated Diagnosis Comments LIPID PANEL Routine 06/13/2025 8:11 AM EDT Type 2 diabetes mellitus COMPREHENSIVE METABOLIC PANEL (CMP) Routine 06/13/2025 8:11 AM EDT Type 2 diabetes mellitus LACERATION REPAIR Routine 05/21/2025 2:5 7 PM EDT Laceration of left thumb without foreign body without damage to nail, initial encounter from Last 3 Months Results * (ABNORMAL) Comprehensive metabolic panel (06/13/2025 8:11 AM EDT) SODIUM 137 133 - 146 mmol/L [facility] POTASSIUM 4.1 3.3 - 5.1 mmol/L [facility] CHLORIDE 102 96 - 108 mmol/L [facility] CO2 28 21 - 35 mmol/L [facility] BUN 15 6 - 19 mg/dL [facility] CREATININE 1.00 0.5 - 1.5 mg/dL [facility] GLUCOSE 131(H) 70 - 99 mg/dL [facility] ALBUMIN 4.3 3.9 - 4.8 g/dL [facility] TOTAL PROTEIN 6.8 6.5 - 8.0 g/dL [facility] CALCIUM 9.3 8.4 - 10.3 mg/dL [facility] ALKALINE PHOSPHATASE 74 39 - 117 U/L [facility] TOTAL BILIRUBIN 1.0 0.0 - 1.2 mg/dL [facility] AST 28 0 - 37 U/L [facility] ALT 19 0 - 40 U/L [facility] GLOBULIN 2.5 1 - 4.8 g/dL [facility] EGFR 78 >59 mL/min/1.7 3m2 [facility] Comment:Estimated glomerular filtration rate calculated using the CKD-EPI refit equation. ANION GAP 11 10 - 20 mmol/L [facility] Blood 06/13/2025 8:11 AM EDT 06/13/2025 8:13 AM EDT us Dionisio Oglesby MD LAB BLOOD BKR ORDERABLES Fi nal Result [facility] [address] [place] [address] * (ABNORMAL) Lipid panel (06/13/2025 8:11 AM EDT) HDL 42 mg/dL [facility] Comment: Interpretation <40 mg/dL: Low HDL cholesterol (major risk factor for CHD) Greater than or equal to 60 mg/dL: High HDL cholesterol ( negative risk factor for CHD) HDL - cholesterol is affected by a number of factors, e.g. smoking, excerise, hormones, sex and age. CHOLESTEROL 179 0 - 240 mg/dL [facility] TRIGLYCERIDES 191(H) 30 - 160 mg/dL [facility] LDL 99 50 - 129 mg/dL [facility] Comment: LDL levels in terms of risk for coronary heart disease: <100 mg/dL: Optimal 100-129 mg/dL: Near or above optimal 130-159 mg/dL: Borderline high 160-189 mg/dL: High >190 mg/dL: Very High CARDIAC RISK RATIO 4.3 3.4 - 5.0 [facility] Blood 06/13/2025 8:11 AM EDT 06/13/2025 8:13 AM EDT us Dionisio Oglesby MD LAB BLOOD BKR ORDERABLES Fi nal Result Performing Organization Address City/State/[facility] Co de Phone Number [address] [phone] * LACERATION REPAIR (05/21/2025 2:57 PM EDT) Other Narrative Jane Vera CNP - 05/21/2025 2:57 PM EDT Jane Vera CNP 05/21/2025 3:03 PM Laceration/Wound Repair Date/Time: 05/21/2025 2:57 PM Performed by: Jane Vera CNP Authorized by: Jane Vera CNP Injury: Body area: Upper extremity Location details: Left thumb 1 Laceration length (cm): 0.5 Foreign bodies: No foreign bodies Tendon involvement: None Nerve involvement: None Patient sedated?: No Anesthesia: Local anesthesia used? Yes Local anesthetic: lidocaine 2% without epinephrine Lidocaine without Epinephrine total (ml): 2 Procedure Details: Preparation: Patient was prepped and draped in usual sterile fashion Irrigation solution: Saline Irrigation method: Syringe Amount of cleaning: Standard Debridement: None Undermining: None Skin closure: 6-0 Prolene Number of sutures: 3 Approximation: Close Patient tolerance: Patient tolerated the procedure well with no immediate complications Jane Vera HIGH REACH OPERATOR PROCEDURE/MINOR SURGICAL OR DERABLES Final Result from Last 3 Months Insurance MEDICARE PART A & B [facility] MEDICARE SUPPLEMENT MEDICARE PART A & B [facility] MEDICARE SUPPLEMENT MEDICARE PART A & B [facility] MEDICARE SUPPLEMENT MEDICARE PART A & B [facility] MEDICARE SUPPLEMENT MEDICARE PART A & B [facility] MEDICARE SUPPLEMENT MEDICARE PART A & B [facility] MEDICARE SUPPLEMENT MEDICARE PART A & B [facility] MEDICARE SUPPLEMENT MEDICARE PART A & B [facility] MEDICARE SUPPLEMENT MEDICARE PART A & B [facility] MEDICARE SUPPLEMENT Advance Directives For more information, please contact: [phone] (9AM - 5PM Tara/[facility], Wednesday-Wednesday) * Full Code (Latest Code Status on File) Date Activated Date Inactivated Comments 05/27/2022 7:06 PM Question Answer Comments Code Status Confirmed With: Patient Care Teams Analog Circuit Designer Relationship Specialty Start Date End Date Bay Mayorga DO [address] [place] [address] PCP - General 09/30/17 Additional Source Comments The information contained in this document represents components of the legal health record. It is not the complete legal health record.[facility]
--- OUTSIDE RECORDS SUMMARY | 2025-08-01 09:46 | XMS_ITS | Encounter Summary ---
Author Organization [facility] Address [address] [facility] [address] [place] [address] Phone Care Team Providers Care Kennel Worker Name Role Phone Bay Mayorga DO Primary Care Provider [phone] Encounter Details Date Type Department Care Team (Latest Contact Info) Description 09/15/2022 Transcribe Orders Virtual Department [address] [place] [address] PA [address] [facility] [place] [address] [place] [address] Other low back pain (Primary Dx) Social History Tobacco Use Types Packs/Day Years Used Date Smoking Tobacco: Former Cigarettes 1 10 962 1971 Smokeless Tobacco: Never Alcohol Use Standard [...] 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 Date 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 Not on file Not on file documented as of this encounter Plan of Treatment Upcoming Encounters Date Type Department Care Team (Late st Contact Info) Description 06/18/2025 Procedure Pass Echo Lab [address] [place] [address] 12/17/2025 1:00 PM EDT Appointment Echo Lab [address] [place] [address] Dionisio Oglesby MD [address] [facility], [address] [place] [address] [email or web address] 12/31/2025 1:40 PM EDT Office Visit [facility] [address] [place] [address] 3rd Floor, [address] [place] [address] Dionisio Oglesby MD [address] [facility], [address] [place] [address] [email or web address] documented as of this encounter Results * XR LUMBOSACRAL SPINE 4 OR MORE VIEWS (09/16/2022 10:12 AM EST) Anatomical Region Laterality Modality L-spine Computed Radiogr aphy 09/16/2022 3:03 PM EST Impressions 09/16/2022 4:48 PM EST Multilevel degenerative change in the lumbar spine, as described. Narrative 09/16/2022 4:48 PM EST XR LUMBOSACRAL SPINE 4 OR MORE VIEWS COMPARISON: No relevant comparison. FINDINGS: Retrolisthesis of L1 on L2, L2 on L3, and L3 on L4. No vertebral body height loss. Moderate to severe degenerative disc disease at L5-S1. Additional degenerative disc disease is most notable at L1-L2. Moderate facet arthropathy, most notable in the lower lumbar spine. Diffuse osseous demineralization. Sacrum is obscured. Vascular calcifications. Procedure Note Louis Zheng MD - 09/16/2022 XR LUMBOSACRAL SPINE 4 OR MORE VIEWS COMPARISON: No relevant comparison. FINDINGS: Retrolisthesis of L1 on L2, L2 on L3, and L3 on L4. No vertebral bodyheight loss. Moderate to severe degenerative disc disease at L5-S1.Additional degenerative disc disease is most notable at L1-L2. Moderatefacet arthropathy, most notable in the lower lumbar spine. Diffuse osseousdemineralization. Sacrum is obscured. Vascular calcifications. IMPRESSION: Multilevel degenerative change in the lumbar spine, as described. us Ghzaal ZAZUETA IMG XR SPINE Final Resul t documented in this encounter Visit Diagnoses Diagnosis Other low back pain- Primary Other low back pain documented in this encounter Care Teams Kennel Worker Relationship Specialty Start Date End Date Bay Mayorga DO [address] [place] [address] [email or web address] PCP - General 09/30/17 documented as of this encounter Additional Source Comments The information contained in this document represents components of the legal health record. It is not the complete legal health record.[facility]
--- OUTSIDE RECORDS SUMMARY | 2025-08-01 09:46 | XMS_ITS | Encounter Summary ---
Author Organization [facility] Address [address] [facility] [address] [place] [address] Phone Care Team Providers Care Advertising Operations Manager Name Role Phone Bay Mayorga DO Primary Care Provider [phone] Encounter Details Date Type Department Care Team (Late Contact Info) Description 09/16/2018 Ancillary Orders Virtual Department [address] [place] [address] Bay Mayorga DO [address] [facility] [place] [address] [place] [address] Screening for abdominal aortic aneurysm Social History Tobacco Use Types Packs/Day Years Used Date Smoking Tobacco: Never Assessed Sex and Gender Information Value Date Recorded Sex Assigned at Male 02/01/2019 1:11 PM EDT Legal Sex Male 10:05 PM EDT Gender Identity Male 02/01/2019 1:11 PM EDT Sexual Orientation Straight 02/01/2019 1: 11 PM EDT documented as of this encounter Plan of Treatment Upcoming Encounters Date Type Department Care Team (Late Contact Info) Description 06/18/2025 Procedure Pass Echo Lab [address] [place] [address] 12/17/2025 1:00 PM EDT Appointment Echo Lab [address] [place] [address] Dionisio Oglesby MD [address] [facility], [address] [place] [address] 12/31/2025 1:40 PM EDT Office Visit [facility] [address] [facility] 3rd Floor, [address] [place] [address] Dionisio Oglesby MD [address] [facility], [address] [place] [address] [email or web address] documented as of this encounter Results * US Abdominal Aortic Screening (10/04/2018 8:03 AM EST) Anatomical Region Laterality Modality Abdomen Ultrasound 10/04/2018 8:36 AM EST Impressions 10/04/2018 8:44 AM EST Mild ectasia of the mid infrarenal aorta in a fusiform pattern to a maximum diameter of 2.7 cm. POS - [id number] Edited by: Mere Ni on 10/04/2018 8:41 AM Narrative 10/04/2018 8:44 AM EST Screening ultrasonic examination of the aorta is performed in a long time smoker. There is minor ectasia of the mid infrarenal aorta to maximal diameter of 2.4 x 2.7 cm compared to a proximal diameter of 2.3 x 2.1 cm. There is tapering at the distal aorta to a diameter of 2.3 x 2.2 cm. There is iliac ectasia with the right measuring 1.5 cm in diameter and the left 1.5 cm as well. Procedure Note Lala Ayers MD - 10/04/2018 Screening ultrasonic examination of the aorta is performed in a long timesmoker. There is minor ectasia of the mid infrarenal aorta to maximaldiameter of 2.4 x 2.7 cm compared to a proximal diameter of 2.3 x 2.1 cm.There is tapering at the distal aorta to a diameter of 2.3 x 2.2 cm. Thereis iliac ectasia with the right measuring 1.5 cm in diameter and the left1.5 cm as well. IMPRESSION: Mild ectasia of the mid infrarenal aorta in a fusiform pattern to amaximum diameter of 2.7 cm. POS - [id number] Edited by: Mere Ni on 10/04/2018 8:41 AM us [place] Hannah Tierra OLMSTEAD IMG US ABDOMEN Final Result documented in this encounter Visit Diagnoses Diagnosis Screening for abdominal aortic aneurysm Screening for other and unspecified cardiovascular conditions Screening for abdominal aortic aneurysm Screening for other and unspecified cardiovascular conditions documented in this encounter Care Teams Advertising Operations Manager Relationship Specialty Start Date End Date Bay Mayorga DO [address] [place] [address] PCP - General 09/30/17 documented as of this encounter Additional Source Comments The information contained in this document represents components of the legal health record. It is not the complete legal health record.[facility]
--- OUTSIDE RECORDS SUMMARY | 2025-08-01 09:46 | XMS_ITS | Encounter Summary ---
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 Wish to be (Past 1 Month) No 022 9:26 PM EDT Niraj Weinberg RN 2. Non-Specific Active Suici essie Thoughts (Past 1 Month) No 05/27/2022 9:26 PM EDT Keo Weinberg, RN 6. Suicidal Behavior (Lifetime) No 9:26 PM EDT Niraj Weinberg, DEIRDRE documented as of this encounter Plan of Treatment Upcoming Encounters Date Type Department Care Team ([facility] st Contact Info) Description 06/18/2025 Procedure Pass Echo Lab [address] [place] [address] 12/17/2025 1:00 PM EDT Appointment Echo Lab [address] [place] [address] Dionisio Oglesby MD [address] [place] [phone] [email or web address] 12/31/2025 1:40 PM EDT Office Visit [facility] [address] [place] [address] [address]rd Floor, [address] [address] Dionisio Oglesby MD [address] [place] [phone] documented as of this encounter Visit Diagnoses Not on filedocumented in this encounter Care Teams Carpenter Helper Hardwood Flooring Relationship Specialty Start Date End Date Bay Mayorga DO [address] [place] [address] PCP - General 09/30/17 documented as of this encounter Additional Source Comments The information contained in this document represents components of the legal health record. It is not the complete legal health record.[facility]
--- OUTSIDE RECORDS SUMMARY | 2025-08-01 09:46 | XMS_ITS | Encounter Summary ---
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 on file Not on file documented as of this encounter Plan of Treatment Upcoming Encounters Date Type Department Care Team (Late st Contact Info) Description 06/18/2025 Procedure Pass Echo Lab [address] [place] [address] 12/17/2025 1:00 PM EDT Appointment Echo Lab [address] [place] [address] Dionisio Oglesby MD [address] [place] [id number] 12/31/2025 1:40 PM EDT Office Visit [facility] [address] [place] [address] [address] Floor, [address] [place] [id number] Dionisio Oglesby MD [address] [place] [address], [address] [address] documented as of this encounter Visit Diagnoses Not on filedocumented in this encounter Care Teams Scale Manager Relationship Specialty Start Date End Date Bay Mayorga DO [address] [facility] [place] [address] [place] [address] PCP - General 09/30/17 documented as of this encounter Additional Source Comments The information contained in this document represents components of the legal health record. It is not the complete legal health record.[facility]
--- OUTSIDE RECORDS SUMMARY | 2025-08-01 09:46 | XMS_ITS | Data Portability ---
Author Organization [facility], Telehealth Patient Home Address [address] [place] [address] Assessment Encounter Date Assessment Date Assessment LastModified by Organization Details LastModified Time 02/25/2024 02/25/2024 [id number] [place] [address] (HEALTH AIDE) [facility] MODERATE MUST MEET 2 OUT OF 3 [...] COVERED Not available 02/25/2024 09:43:02 06/28/2024 06/28/2024 [address] [place] [address] (HEALTH AIDE) [facility] MODERATE MUST MEET 2 OUT OF 3 [...] COVERED Not available 06/28/2024 09:43:01 12/15/2024 12/15/2024 [address] [place] [address] (HEALTH AIDE) MDM HIGH MUST MEET 2 OUT OF [...] an established patient. Not available 12/15/2024 09:26:35 04/13/2025 04/13/2025 [address] [place] [address] (HEALTH AIDE) MDM MODERATE MUST MEET 2 OUT OF 3 [...] EACH ELEMENT THAT IS COVERED Not available 04/13/2025 09:14:30 Plan of Treatment Reminders Order Date Submit Date Provider Last Modified By Organization Details Last Modified Time Details Appointments MEDICARE ANNUAL WELLNESS 2024 09:15A Adrián AGUILA Not available Not available Not available Lab HbA1c (hemoglob in A1c), blood 2024 025 [facility], [address] [place] [address], [place], [address], 04/11/2025 13:02:03 HbA1c (hemoglob in A1c), blood 2024 025 [facility], [address] [place] [address], [place], [address], 04/11/2025 13:02:03 CMP, serum or plasma 2024 025 [facility], [address] [place] [address], [place], [address], 04/11/2025 13:02:04 CMP, serum or plasma 2024 025 [facility], [address] [place] [address], [address], 06/13/2025 13:07:25 CMP, serum or plasma 2024 025 [facility], [address] [place] [address], [place], [address], 06/13/2025 13:07:25 Referral dermatolo gist referral - please see soon [email or web address] s 2023 024 [email or web address] 10 [facility], [address] [place], [address], 02/28/2024 08:22:32 Procedures None recorded. Surgeries None recorded. Imaging None recorded. Medication Orders amoxicill in 875 mg tablet 2024 025 [id number], [address] [place], [place], [id number], 04/13/2025 09:00:11 Patient TargetsNo targets recorded. Patient Instructions Encounter Date Encounter Id Patient Instructions Last Modified By Organization Details Last Modified Time 02/25/2024 [id number] gout: care instructions Not available 02/25/2024 09:41:12 prediabetes: car e instructions Not available 02/25/2024 09:41:12 high blood pressure: care instructions Not available 02/25/2024 09:41:12 learning about high blood pressure Not available 02/25/2024 09:41:12 atrial fibrillation: care instructions Not available 02/25/2024 09:41:12 leg and ankle edema: care instructions Not available 02/25/2024 09:41:12 06/28/2024 [id number] prediabetes: car e instructions Not available 06/28/2024 09:43:01 12/15/2024 [id number] gout: care instructions Not available 12/15/2024 09:27:19 leg and ankle edema: care instructions Not available 12/15/2024 09:25:34 prediabetes: car e instructions Not available 12/15/2024 09:25:34 high blood pressure: care instructions Not available 12/15/2024 09:25:34 learning about high blood pressure Not available 12/15/2024 09:25:34 pulse oximetry* Not available 12/15/2024 09:25:34 04/13/2025 [id number] pulse oximetry* Not available 04/13/2025 09:16:46 Reason for Referral Diet Aid Referral for D ysplastic nevus of skin please see soon suspicious Referring Physician: Bay Aguila, Internal Medicine, Encounter Date: 02/25/2024 Results Created Date Observation Date Name Description Value Unit Range Abnormal Flag Note LastModifiedBy Organization Detail LastModifiedTime 12/16/1912/15/2024 pulse oxime try* Result 95 Not Available [facility] [address] [facility] [address], [place], [address], 12/13/2024 10:36:32 04/13/20 25 04/13/2025 pulse oxime try* Result 97 Not Available [facility] [address] [facility] [address], [place], [address], 04/09/2025 12:03:53 06/16/20 24 12/24/2023 US, echoc ardio gram No observ ation record ed. [email or web address] [facility] [address], [place], [address], 06/16/2024 14:42:44 04/05/20 25 04/05/2025 trans -thor acic echoc ardio gram (TTE) (PROC ) No observ ation record ed. [facility] [address], [place], [address], 04/05/2025 14:11:21 Result Notes None recorded. Problems Name Problem SNOMED Code Status Onset Date Resolution Date Notes Provider Name and Address Organization Details Recorded Time Gary arauz sion 96952869 Active 2017 Lillian moreau [facility] 5 10:36:16 Endocard itis 08902550 Active 2017 H/O Lillian moreau [facility] 5 10:36:23 Harmful pattern of use of alcohol 99475434 Completed 201701/04/2019 Bay Aguila DO [address] [place] [address], [address], [facility] 9 09:45:32 Edema 570578045 Active 2017 Lillian moreau [facility] 5 10:36:16 Osteoart hritis 336102336 Active 2017 Lillian moreau [facility] 5 10:36:16 History of aortic valve replacem ent 45261252863 00 Active 2017 Lillian moreau [facility] 5 10:36:16 Gout 53135502 Active 2017 Not Available [facility] 0 12:04:45 Anxiety 28535233 Active 2020 Bay Aguila DO [address] [place] [address], [address], [facility] 1 10:47:52 Impaired fasting glycemia 454914292 Active 2021 Bay Aguila, DO [address] [place], [address], [facility] 2 11:12:23 Acute low back pain 093055189 Active 2021 Lillian Veras null, [facility] 5 10:36:23 Lumbar radiculo mikayla 112357525 Active 2021 Lillian Veras null, [facility] 5 10:36:16 Degenera tion of lumbar interver tebral disc 31855692 Active 2021 Lillian Veras null, [facility] 5 10:36:16 Spinal stenosis of lumbar region 42576481 Active 2022 Lillian Veras null, [facility] 5 10:36:16 Abscess 823172707 Active 2022 Lillian Veras null, [facility] 5 10:36:23 Atrial fibrilla tion 70353559 Active 2022 Lillian Veras null, [facility] 5 10:36:16 Cervical radiculo mikayla 88709693 Active [address] [facility], [facility] 5 10:36:16 Onycholy sis due to fungal infectio n of nail 214569971 Active 2023 Lillian Veras null, [facility] 5 10:36:23 Dysplast ic nevus of skin 868688398 Active 2023 Lillian moreau, [facility] 5 10:36:16 Mitral stenosis with insuffic iency 577317823 Active 2023 Lillian moreau, [facility] 5 10:36:16 Sick sinus syndrome 72723335 Active 2024 Bay Aguila, DO [address] [place], [address], [facility] 5 09:16:08 Cardiac pacemake r in situ 247559970 Active 2024 Bay HannahMitch Aguila DO [address] [place], [address], [facility] 5 09:16:24 Acute left otitis media 623065757 Active 2024 CHRISTIANNE CADET [address] [place], [address], [facility] 5 15:07:19 Abscess of buttock 71590947 Active 2024 Bay Aguila DO [address] [place] [address], [address], [facility] 5 13:25:53 Problem Notes None recorded. Procedures Surgical History Date Name Laterality Status Provider Name and Address Organization Details Recorded Time 05/02/20 20 Colonoscopy completed Bay Aguila DO [address] [place] [address], [phone], [facility] 05/10/2020 10:46:29 Imaging Results None recorded. Procedure [...] CAPSULES BY MOUTH 1 HOUR BEFORE SURGERY 04/13 completed Not Available Not Available Not Available prednisone 10 mg tablet TAKE 6 TABLETS FOR 2 DAYS, THEN 5 TABLETS X 2 DAYS, 4 TABLETS X 2 DAYS, 3 TABLETS X 2 DAYS, 2 TABLETS X 2 DAYS, 1 TABLET X 2 DAYS active Not Available Not Available No t Available doxycycline hyclate 100 mg capsule Take 1 capsule twice a day by oral route for 10 days. 05/17 completed Not Available Not Available Not Available naproxen 375 mg tablet Take 1 tablet [...] MOUTH EVERY 12 HOURS FOR 7 DAYS 04/13 completed Not Available Not Available Not Available lorazepam 0.5 mg tablet Take one [...] Not Available Not Available No t Available oxycodone 5 mg tablet TAKE 1 TABLET BY MOUTH EVERY 6 HOURS NEEDED FOR SEVERE PAIN :TAKE ONLY FOR SEVERE PAIN NOT WELL CONTROLLE D WITH TYLENOL/I BUPROFEN active Not Available Not Available No t Available metoprolol tartrate 25 mg tablet TAKE [...] Updated DateTime 5 177.8 cm 33 kg/m2 510511. 32 g 74 /min 95 % 95 % 122/78 mm[Hg] Lillian Drew [facility] 5 09:05:07 Date Recorded Body height Body mass index (BMI) Body weight Heart rate Oxygen saturation Oxygen saturation in Arterial blood by Pulse oximetry Systolic And Diastolic Provider Name and Address Organization Details Last Updated DateTime 5 177.8 cm 33 kg/m2 876205. 25 g 74 /min 97 % 97 % 100/74 mm[Hg] Roseann Lemus [facility] 5 14:55:52 Date Recorded Body height Body mass index (BMI) Body weight Heart rate Respiratory rate Oxygen saturation Oxygen saturation in Arterial blood by Pulse oximetry Systolic And Diastolic Provider Name and Address Organization Details Last Updated DateTime 4 177.8 cm 33.2 kg/m2 314917. 56 g 69 /min 18 /min 95 % 95 % 132/82 mm[Hg] Timmy Denton [facility] 4 09:10:09 Date Recorded Body height Body mass index (BMI) Body weight Oxygen saturation Oxygen saturation in Arterial blood by Pulse oximetry Heart rate Systolic And Diastolic Provider Name and Address Organization Details Last Updated DateTime 5 177.8 cm 33 kg/m2 992252. 25 g 97 % 97 % 87 /min 122/62 mm[Hg] Bay Aguila, DO [address] [place], [address] [facility] 5 08:59:25 Date Recorded Body height Body mass index (BMI) Body weight Heart rate Oxygen saturation Oxygen saturation in Arterial blood by Pulse oximetry Systolic And Diastolic Provider Name and Address Organization Details Last Updated DateTime 4 177.8 cm 33.1 kg/m2 801465. 84 g 53 /min 97 % 97 % 110/70 mm[Hg] Roseann Lemus [facility] 4 09:26:14 Social History Question Answer Notes LastModified by Organizat ion Details LastModified Time Tobacco Smoking Status Former Smoker Not Available [facility] 07/30/2020 03:36:23 What Was The Date Of Your Most Recent Tobacco Screening? 04/13/2025 Information not available 04/13/2025 Sex: Unknown Functional Status Question Answer Note [...] mcg/0.25mL dose 11/20/19 21 completed Not Available [facility] 06/15/2022 10:11:39 COVID-19, mRNA, LNP-S, PF, 100 mcg/0.5mL dose or 50 mcg/0.25mL dose 12/19/19 21 completed Not Available [facility] 06/15/2022 10:11:39 COVID-19, mRNA, LNP-S, PF, 100 mcg/0.5mL dose or 50 mcg/0.25mL dose 12/19/19 21 completed Not Available [facility] 06/15/2022 10:11:39 COVID-19, mRNA, LNP-S, PF, 100 mcg/0.5mL dose or 50 mcg/0.25mL dose 01/06/20 22 completed Not Available [facility] 06/15/2022 10:11:39 influenza, unspecified formulation 06/11/20 22 completed Bay Aguila, DO [address] [facility], [place], [address], [facility] 10/21/2022 08:56:08 COVID-19, mRNA, LNP-S, PF, 50 mcg/0.5 mL 07/12/20 23 completed Roseann moreau [facility] 07/12/2023 10:38:55 RSV, recombinant, protein subunit RSVpreF, adjuvant reconstituted, 0.5 mL, PF 07/12/20 23 completed Roseann moreau [facility] 07/12/2023 10:40:04 pneumococcal polysaccharide PPV23 08/15/20 19 completed Not Available [facility] 06/15/2022 10:11:39 Influenza, split virus, quadrivalent, preservative 08/15/20 19 completed Not Available [facility] 06/15/2022 10:11:39 Influenza, split virus, quadrivalent, preservative 05/31/20 20 completed Not Available [facility] 06/15/2022 10:11:39 zoster, unspecified formulation 07/09/20 20 completed Not Available [facility] 06/15/2022 10:11:39 zoster, unspecified formulation 09/06/20 20 completed Not Available [facility] 06/15/2022 10:11:39 zoster, unspecified formulation 04/20/20 12 completed Not Available [facility] 06/15/2022 10:11:39 Pneumococcal conjugate PCV 13 11/29/19 15 completed Not Available [facility] 06/15/2022 10:11:39 Influenza, split virus, quadrivalent, preservative 06/04/20 18 completed Not Available [facility] 06/15/2022 10:11:39 Pneumococcal conjugate PCV 13 06/04/20 18 completed Not Available [facility] 06/15/2022 10:11:39 Past Encounters Encounter ID Performer Location Encounter Start Date Encounter Closed Date Diagnosis/Indication Diagnosis SNOMED-CT Code Diagnosis ICD10 Code Diagnosis IMO Codes Diagnosis Note [id number] Bay Aguila DO [facility] [address] [facility],[place] [address] 01/28/2018 09:25:05 01/28/2018 16:07:13 Diabetes mellitus 96149702 E11.9 well a1c good has not gained weight diet good not enough exercise Hypertensive disorder 38 424678 I10 also doing well no major issues ' no cp still with exert dyspnea but this is typical and unhanged [id number] Bay Aguila DO [facility] [address] [facility], [place] [address] 05/02/2018 10:52:21 05/02/2018 12:10:49 Gout 80859671 M10.9 Essential hypertension 03177878 I10 stable [id number] Bay Aguila [facility] [address] [facility],[place] [address] 06/03/2018 09:40:24 06/03/2018 10:21:34 Essential hypertension 18352682 I10 excellent levels chk at home too Diabetes mellitus 147112 09 E11.9 well a1c good has not gained weight diet good not enough exercise Gout 67056485 M10.9 recent attack and will restart the colchicine Adult heal th examination 019043063 Z00.00 overall has done quite well and is pleased he has turned his health around now cont and will be getting his vaccines [id number] Bay Aguila [facility] [address] [facility] [address],[place] [address] 09/16/2018 09:42:43 09/16/2018 15:58:33 Essential hypertension 59869953 I10 excellent levels chk at home too Diabetes mellitus 422047 09 E11.9 well a1c good at 5.9 has not gained weight diet good not enough exercise Abdominal aortic aneurysm screening 704821059 Z13.6 will order US Generalize d anxiety disorder 29492305 F41.1 [id number] Bay Aguila [facility] [address] [facility],[place] [address] 12/09/2018 09:46:54 12/09/2018 11:28:24 Gout 54723831 M10.9 Essential hypertension 01232771 I10 stable [id number] Bay Aguila [facility] [address] [facility],[place] [address] 01/04/2019 09:23:57 01/04/2019 10:01:12 Diabetes mellitus 30593029 E11.9 well a1c good at 5.9 has not gained weight diet good not enough exercise and has been doing ok Essential hypertension 48930545 I10 excellent levels chk at home too Gout 32234910 M10.9 recent attack and will restart the colchicine Anxiety 34283781 F41.9 uses med to help sleep [id number] Bay Aguila [facility] [address] [facility] [address],[place] [address] 04/14/2019 09:25:43 04/14/2019 10:20:18 Diabetes mellitus 12130833 E11.9 well a1c great at 5.9 has not gained weight diet good not enough exercise and has been doing ok Essential hypertension 67506045 I10 excellent levels chk at home too Osteoarthritis 706756902 M19.90 still symptomati c still and issue at times History of aortic valve replacement 9127674504 100 Z95.4 will have him echo his aortic valve in a follow up as he is having atypical chest pain and aortic murmur [id number] Bay Aguila [facility] [address] [facility],[place] [address] 07/28/2019 08:55:06 07/28/2019 09:12:41 Diabetes mellitus 14988903 E11.9 well a1c great at 5.8 has not gained weight diet good not enough exercise and has been doing ok Essential hypertension 62341159 I10 excellent levels chk at home too Gout 90166164 M10.9 quiet and is very good at being careful with diet Anxiety 99903804 F41.9 uses med to help sleep [id number] Bay Aguila [facility] [address] [facility],[place] [address] 08/15/2019 10:09:52 08/15/2019 11:51:54 Gout 51575883 M10.9 Diabetes mellitus 633142 09 E11.9 diet and exercise controlled Essential hypertension 58166164 I10 very well controlled Osteoarthritis 687466982 M19.90 [id number] Bay Aguila [facility] [address] [facility],[place] [address] 11/01/2019 09:07:38 11/01/2019 09:54:49 Essential hypertension 44715604 I10 excellent levels chk at home too Diabetes mellitus 254193 09 E11.9 well a1c great at 5.8 diet good not enough exercise and has been doing ok Family his tory of cancer of colon 010081871 Z80.0 [id number] Bay Aguila [facility] [address] [facility] [address],[place] [address] 01/22/2020 09:55:33 01/22/2020 14:33:12 Spasm of back muscles 286553059 M62.830 the pt is having an episode of muscle spasm will reassess with XR and need for PT at a later date when the pandemic is no longer [id number] Bay Aguila DO [facility] [address] [facility],[place] [address] 01/29/2020 11:01:44 01/29/2020 11:49:53 Lumbar radiculopathy 716476113 M54.16 pt is still having pain states over the weekend he was in severe pain and now is having shooting pain and numbness and tingling down his left leg will treat with prednisone for inflammati on most likely the cause around pinched/en trapped nerve and possible herniated disc, stop his naproxen and send for ortho referral to be evaluated [id number] Bay Aguila DO [facility] [address] [facility],[place] [address] 04/01/2020 13:53:58 04/01/2020 14:48:17 Adult health examination 196349834 Z00.00 overall has done quite well and is pleased he has turned his health around now cont and will be getting his vaccines Screening for cardiovascular system disease 933595764 Z13.6 Screening for malignant neoplasm of colon 999221363 Z12.11 relates still waiting to see about getting colonoscop y despite his hx of endocardit is which originated in a rectal fissure Essential hypertension 13879380 I10 excellent levels chk at home too Diabetes mellitus 890916 09 E11.9 well a1c great at 5.8 diet good sometimes not enough exercise and has been doing ok Anxiety 96400757 F41.9 uses med to help sleep [id number] DO [facility] [address] [facility] [address],[place] [address] 05/31/2020 09:27:23 05/31/2020 10:26:34 Diabetes mellitus 74660870 E11.9 well a1c great at 5.8 diet good sometimes not enough exercise and has been doing ok Gout 46757191 M10.9 quiet and is very good at being careful with diet Essential hypertension 03126312 I10 excellent levels chk at home too Osteoarthritis 438553885 M19.90 still symptomati c still and issue at times Edema of l ower extremity 144699373 R60.0 [id number] Bay Aguila DO [facility] [address] [facility],[address] [place] [address] 09/13/2020 13:26:13 09/13/2020 13:50:01 Diabetes mellitus 59528093 E11.9 well a1c great at 5.6 and was 5.8 diet good sometimes not enough exercise and has been doing ok Essential hypertension 11244643 I10 excellent levels chk at home too [id number] Bay Aguila [facility] [address] [facility],[place] [address] 12/23/2020 10:49:39 12/23/2020 14:45:36 Acute sinusitis 56104751 J01.00 given the concurrent start of nasal congestion , rhinorrhea and then balance concerns, very possible he has a sinus infection will trial abx and fu if no change [id number] Bay Aguila [facility] [address] [facility],[address] [place] [address] 01/08/2021 10:10:39 01/08/2021 10:55:45 Essential hypertension 76653032 I10 excellent levels chk at home too Diabetes mellitus 097583 09 E11.9 well a1c great and is still at 5.6 befire he was at 5.6 and was 5.8 diet good sometimes not enough exercise and has been doing ok Chronic re nal insufficiency 013294768 N18.9 has been stable and Anxiety 43481639 F41.9 uses med to help sleep [id number] Bay Aguila [facility] [address] [facility],[place] [place] [address] 04/23/2021 09:20:37 04/23/2021 09:43:48 Anxiety 94599698 F41.9 uses med to help sleep and needs refill Diabetes mellitus 067860 09 E11.9 well a1c great and is still at 5.6 befire he was at 5.6 and was 5.8 diet good sometimes not enough exercise and has been doing ok Essential hypertension 30395425 I10 excellent levels chk at home too but given gfr decrease we will switch off furosemide and use low dose lisinopril Chronic ki dney disease 104715797 N18.9 we will stop the lasix and add low dose lisinopril [id number] Bay Aguila [facility] [address] [place] [address],[place] [address] 05/23/2021 10:39:50 05/23/2021 11:11:32 Diabetes mellitus 58970789 E11.9 well a1c great and is still at 5.6 befire he was at 5.6 and was 5.8 diet good sometimes not enough exercise and has been doing ok Gout 51057378 M10.9 quiet and is very good at being careful with diet Edema 024652095 R60.9 resolving foot edema L>R in feet Renal insufficiency 7231 49578 N28.9 creat was 1.5 and now since stopping the furosemide has dropped to 1.3 creat Headache 15096471 R51.9 this bothers me and we will have him get a ct scan of the brain as this is such a odd presentati on at the top of the parietal scalp midline no other neuro deficits [id number] Bay Aguila [facility] [address] [facility],[place] [address] 06/30/2021 13:37:34 06/30/2021 14:16:16 Diabetes mellitus 12160153 E11.9 well a1c great and is still at 5.6 before he was at 5.6 and was 5.8 diet good sometimes not enough exercise and has been doing ok Edema 745690672 R60.9 resolving foot edema L>R in feet Essential hypertension 50481208 I10 excellent levels chk at home too but given gfr decrease we will switch off furosemide and use low dose lisinopril Headache 50666249 R51.9 ct is negative for headache causes and is reassuring reviewed causes we will try to wean off a lot of his medswill stop the fiorinalst op iron folic acid potassium [id number] Bay Aguila [facility] [address] [place] [address],[place] [address] 10/14/2021 14:02:42 10/17/2021 10:29:56 Diabetes mellitus 14679837 E11.9 well a1c great and is still at 5.5 and prior was 5.6 before he was at 5.6 and was 5.8 diet good sometimes not enough exercise and has been doing ok Edema 062554969 R60.9 resolving foot edema L>R in feet Essential hypertension 73829468 I10 excellent levels chk at home too but given gfr decrease we will switch off furosemide [id number] Bay Aguila [facility] [address] [facility] [address],[place] [address] 02/02/2022 11:46:20 02/02/2022 14:33:21 Diabetes mellitus 77442372 E11.9 well a1c great and is still at 5.5 and prior was 5.6 before he was at 5.6 and was 5.8 diet good sometimes not enough exercise and has been doing ok Essential hypertension [id number] I10 excellent levels chk at home too but given gfr decrease we will switch off furosemide Anxiety 29280959 F41.9 uses med to help sleep and needs refill Gout 65020684 M10.9 quiet and is very good at being careful with diet [id number] Bay Aguila [facility] Internal Medicine [address] [facility] on [address] [place] [address] 06/12/2022 10:46:00 06/12/2022 12:34:45 Diabetes mellitus 38979806 E11.9 well a1c great and is still at 5.4 and was 5.5 and prior was 5.6 before he was at 5.6 and was 5.8 diet goodso we will now GET RID OF HIS DIAGNOSIS OF DIABETES AND CHANGE TO IMP FAST GLUCnot enough exercise and has been doing ok Anxiety 20245833 F41.9 uses med to help sleep and needs refill Essential hypertension 81153511 I10 excellent levels chk at home too but given gfr decrease we will switch off furosemide Impaired f asting glycemia 712418512 R73.01 this will be his new dx [id number] Bya Aguila [facility] Internal Medicine [address] [facility] [address] [place] [address] 09/15/2022 14:34:15 09/15/2022 16:13:04 Acute low back pain 236414779 M54.59 start on XR lumbar spine Lumbar radiculopathy 128 703441 M54.16 start on pred and oxy for severe lumbar spine pain and ROMagreed to work upwill need XR and MRI [id number] Bay Aguila DO [facility] Internal Medicine [address] [facility] [address],[place] [address] 10/21/2022 08:51:56 10/21/2022 10:34:31 Impaired fasting glycemia 110298839 R73.01 this will be his new dxa1c ius still great at 5.6 Essential hypertension 94662203 I10 excellent levels chk at home too but given gfr decrease we will switch off furosemide Active or passive immunization 234113559 Z23 patient advised he is due for flu shot & tdap [id number] Bay Aguila DO [facility] Internal Medicine [address] [facility] [address] [place] [address] 01/27/2023 09:05:15 01/27/2023 10:11:33 Degeneration of lumbar intervertebral disc 56529623 M51.36 has been pretty much pain free doing ok Diabetes mellitus 238684 09 E11.9 well a1c great and is still at 5.5 5.4 and was 5.5 and prior was 5.6 before he was at 5.6 and was 5.8 diet goodso we will now GET RID OF HIS DIAGNOSIS OF DIABETES AND CHANGE TO IMP FAST GLUCnot enough exercise and has been doing ok Essential hypertension 88269568 I10 excellent levels chk at home too but given gfr decrease we will switch off furosemide Gout 91032483 M10.9 quiet and is very good at being careful with diet Impaired f asting glycemia 745445447 R73.01 this will be his new dxa1c ius still great at 5.6 [id number] Bay Aguila DO [facility] Internal Medicine [address] [facility] on [address],[place] [address] 03/02/2023 10:44:49 03/02/2023 11:10:37 Abscess 714125138 L02.31 resolved [id number] Bay Aguila DO [facility] Internal Medicine [address] [facility] on [address],[place] [address] 07/12/2023 10:29:10 07/13/2023 11:19:55 Essential hypertension 87572524 I10 excellent levels chk at home too but given gfr decrease we will switch off furosemide Impaired f asting glycemia 247990018 R73.01 this will be his new dx a1c is [id number] ius still great at 5.6 Lumbar radiculopathy 128 078913 M54.16 has been stable History of aortic valve replacement 1399648692 100 Z95.4 will have him echo his aortic valve in a follow up as he is having atypical chest pain and aortic murmur Atrial fibrillation 4943 6004 I48.91 chronic on eliquis [id number] Bay Aguila [facility] Internal Medicine [address] [facility] [address] [place] [address] 11/05/2023 09:10:09 11/05/2023 09:48:10 Impaired fasting glycemia 573245792 R73.01 this will be his new dx a1c asb his a1c is 5.5 5.4 in cmmqqcer2s prior at 5.6 Atrial fibrillation 4943 6004 I48.91 completely asymptomat ic Essential hypertension 38320322 I10 excellent levels chk at home too butis sl elevated in the am so we will have him take his meds at night [id number] Bay Aguila [facility] Internal Medicine [address] [facility] [address] [place] [address] 10/06/2023 10:18:40 10/06/2023 15:13:18 Cervical radiculopathy 53016069 M54.12 will set up with XR'ssounds like radiculopa thy related to a probable disc bulge sitting at C5 to C6 based on his symptoms [id number] Bay Aguila DO [facility] Internal Medicine [address] [facility] [address] [place] [address] 12/22/2023 09:20:55 12/22/2023 10:57:06 Onycholysis due to fungal infection of nail 899880539 L60.1 will set up with two week course and f/u to see how pt does on it [id number] Bay Aguila DO [facility] Internal Medicine [address] [facility] [address] [place] [address] 02/25/2024 09:01:11 02/25/2024 10:06:53 Depression screening 360259018 Z13.31 negative Atrial fibrillation 4943 6004 I48.91 completely asymptomat ic Impaired f asting glycemia 345572825 R73.01 this will be his new dx a1c asb his a1c is 5.7 5.5 5.4 in [id number] prior at 5.6 Essential hypertension 57930152 I10 excellent levels chk at home too butis sl elevated in the am so we will have him take his meds at night Gout 91794698 M10.9 quiet and is very good at being careful with diet Edema 318093706 R60.9 resolving foot edema L>R in feet History of aortic valve replacement 1736612418 100 Z95.4 will have him echo his aortic valve in a follow up Dysplastic nevus of skin 776990002 D22.9 [id number] [facility] [address] [facility], [place] [address] 06/28/2024 09:14:56 06/28/2024 09:47:55 Atrial fibrillation 09832945 I48.91 completely asymptomat ic Mitral adalberto nosis with insufficiency 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 I05.2 here and is followed by cariology Impaired f asting glycemia 405946167 R73.01 still doing fantastic a1c is 5.6 [id number] [facility] [address] [facility], [place] [address] 12/15/2024 08:46:55 12/15/2024 12:11:37 Atrial fibrillation 60913988 I48.91 completely asymptomat ic Depression screening 171 214041 Z13.31 negative Essential hypertension 11485881 I10 bp has been excellentr elates home bp ok Edema 101191266 R60.9 resolving foot edema L>R in feet no further need for tx Impaired f asting glycemia 482409577 R73.01 still doing fantastic a1c is 5.9will cont to monitor Sick sinus syndrome 3608 3008 I49.5 stable pace maker working well and followed by cardiol Cardiac christianne jiménez in situ 752304881 Z95.0 as above Gout 40027025 M10.9 quiet and is very good at being careful with diet [id number] Bay Aguila DO [facility] Internal Medicine [address] [facility],[place] [address] 12/29/2024 14:38:08 12/29/2024 15:56:04 Acute left otitis media 706286886 H65.02 will set up with amoxicilli n [id number] Bay Aguila DO [facility] Internal Medicine [address] [facility],[place] [address] 04/13/2025 08:51:30 04/13/2025 09:34:13 Depression screening 685410773 Z13.31 negative Atrial fibrillation 4943 6004 I48.91 completely asymptomat ic Essential hypertension 41186810 I10 bp has been excellentr elates home bp ok Health Concerns Section Related Observation LastModified by Organization Detai ls LastModified Time None Recorded Concern Status LastModified by Organization Details LastModified Time None Recorded Advance Directives Directive None Recorded Payers Insurance Date Sequence Insurance Name Policy Number Policy Luis Covered Member ID Luis Member ID Guarantor Name 07/31/2025 1 [place] [employer] Dustin Weathers [id number] Dustin Weathers 07/31/2025 2 A[employer] (MEDICARE SUPPLEMENT) Dustin Weathers [id number] Dustin Weathers Notes Date Note Type Note Provider Name and Address Organization Details Recorded Time 024 text/ht ml ROS as noted in the HPI here for rechk and is doing ok overallstates no cp no sob unless exertinghas been doing a lot of fishing Bay Aguila DO [address] [place], [address], [facility] Internal Medicine 02/25/2024 09:44:45 024 text/ht ml Care Management - HypertensionReported by PatientHPIFor self care, patient reportsnot under emotional stress. For severity, patient reportssymptoms are improvinganddoes not interfere with daily activities. For associated symptoms, patient reportsno dizziness,no lightheadedness,no chest pain,no shortness of breath,no palpitations,no edema,no calf muscle cramps,no blurred vision,no confusion,no headaches, andno fatigue. Care Management - DiabetesReported by PatientHPIFor self care, patient reportsseeing eye doctor yearly for dilated eye exam,checking feet regularly,normal range of home blood sugars (in the low 100s), andno side effects from medications. For associated symptoms, patient reportssymptoms are usually well controlled,no fatigue,no dizziness,no excessive sweating,no headaches,no confusion,no increased thirst,no increased appetite,no increased urination,no blurred vision,no numbness of feet, andno calluses on feet.ROS as noted in the HPI here for rechk doing ok overallstates that will be getting a nuclear scan soon due to some exertional dyspnearelates doing ok overall doing well with diet Bay Aguila, DO [address] [place], [address], [facility] Internal Medicine 06/28/2024 09:44:02 025 text/ht ml Care Management - HypertensionReported by PatientLDS HOSPITALor self care, patient reportsnot under emotional stress. For severity, patient reportssymptoms are improvinganddoes not interfere with daily activities. For associated symptoms, patient reportsno dizziness,no lightheadedness,no chest pain,no shortness of breath,no palpitations,no edema,no calf muscle cramps,no blurred vision,no confusion,no headaches, andno fatigue. Care Management - DiabetesReported by PatientLDS HOSPITALor self care, patient reportsseeing eye doctor yearly for dilated eye exam,checking feet regularly,normal range of home blood sugars (in the low 100s), andno side effects from medications. For associated symptoms, patient reportssymptoms are usually well controlled,no fatigue,no dizziness,no excessive sweating,no headaches,no confusion,no increased thirst,no increased appetite,no increased urination,no blurred vision,no numbness of feet, andno calluses on feet.ROS as noted in the HPI here for rechk and is doing ok [...] overall doing well with diet Bay Aguila, DO [address] [place], [address], [facility] Internal Medicine 12/15/2024 09:28:10 025 text/ht ml ROS as noted in the HPI c/o left ear pain the patient has [...] serous effusion then inf CHRISTIANNE CADET [address] [place], [address], [facility] Internal Medicine 12/29/2024 15:17:47 025 text/ht ml Care Management - HypertensionReported by PatientHPIFor self care, patient reportsnot under emotional stress. For severity, patient reportssymptoms are improvinganddoes not interfere with daily activities. For associated symptoms, patient reportsno dizziness,no lightheadedness,no chest pain,no shortness of breath,no palpitations,no edema,no calf muscle cramps,no blurred vision,no confusion,no headaches, andno fatigue. Care Management - Atrial FibrillationReported by PatientCare ManagementFor medications, patient reportscompliant with medication. For prior imaging, patient reportsechocardiogramandrecent ecg.Interim HistoryFor associated symptoms, patient reportsno dizziness,no chest pain,no easy bruisability, andno rapid heart rate. here for rechk and is doing ok but relates that he just had a melanoma taken off his nosehad an apparent full eval for pre op Bay Aguila, DO [address] [place], [address], [facility] Internal Medicine 04/13/2025 09:16:59
--- OUTSIDE RECORDS SUMMARY | 2025-08-01 09:46 | XMS_ITS | Encounter Summary ---
Author Organization [facility] Address [address] [place] [address] Phone Care Team Providers Care Respiratory Care Practitioner Name Role Phone Bay Mayorga DO Primary Care Provider [phone] Encounter Details Date Type Department Care Team (Latest Contact Info) Description 10/06/2023 Ancillary Orders [facility], X-Ray - [facility] [address] [place] [address] PA [address] [place] [address] Cervical radiculopathy (Primary Dx) Social History Tobacco Use Types Packs/Day Years Used Date Smoking Tobacco: Former Cigarettes 1 10 1 962 - 1972 Smokeless Tobacco: Never Alcohol Use Standard Drinks/Week [...] Start Date 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[employer] Not on file Not on file Not on file documented as of this encounter Plan of Treatment Upcoming Encounters Date Type Department Care Team (Late st Contact Info) Description 06/18/2025 Procedure Pass [facility] [address] [place] [address] 12/17/2025 1:00 PM EDT Appointment Echo Lab [address] [place] [address] Dionisio Oglesby MD [address] [place] [address], [address] [address] [email or web address] 12/31/2025 1:40 PM EDT Office Visit [facility] [address] [place] [address] [address]rd Floor, [address] [place] [address] Dionisio Oglesby MD [address] [place] [address], [address] [address] [email or web address] documented as of this encounter Results * XR SHOULDER 2 VIEWS (LEFT) (10/06/2023 12:53 PM EST) Anatomical Region Laterality Modality Shoulder Left Computed Radiogr aphy 10/08/2023 2:02 AM EST Impressions 10/08/2023 2:03 AM EST Mild to moderate acromioclavicular joint osteoarthritis. Narrative 10/08/2023 2:03 AM EST XR SHOULDER 2 OR MORE VIEWS (LEFT) COMPARISON: None FINDINGS: BONE: No acute fracture or dislocation. GLENOHUMERAL JOINT: Joint spaces preserved. Fibrocystic changes at the rotator cuff attachment. ACROMIOCLAVICULAR JOINT: Mild to moderate bony proliferative change at the acromioclavicular joint. OTHER: Partially visualized cervical spine degenerative change. Partially visualized median sternotomy wires. Procedure Note Ana Jane MD - 10/08/2023 XR SHOULDER 2 OR MORE VIEWS (LEFT) COMPARISON: None FINDINGS: BONE: No acute fracture or dislocation. GLENOHUMERAL JOINT: Joint spaces preserved. Fibrocystic changes at therotator cuff attachment. ACROMIOCLAVICULAR JOINT: Mild to moderate bony proliferative change at theacromioclavicular joint. OTHER: Partially visualized cervical spine degenerative change. Partiallyvisualized median sternotomy wires. IMPRESSION: Mild to moderate acromioclavicular joint osteoarthritis. Ghazal ZAZUETA IMG XR UPPER EXTREMITY Petra l Result documented in this encounter Visit Diagnoses Diagnosis Cervical radiculopathy- Primary Brachial neuritis or radiculitis nos Cervical radiculopathy Brachial neuritis or radiculitis nos documented in this encounter Care Teams Respiratory Care Practitioner Relationship Specialty Start Date End Date Bay Mayorga DO [address] [place] [address] [email or web address] PCP - General 09/30/17 documented as of this encounter Additional Source Comments The information contained in this document represents components of the legal health record. It is not the complete legal health record.[facility]
--- OUTSIDE RECORDS SUMMARY | 2025-08-01 09:46 | XMS_ITS | Encounter Summary ---
Author Organization [facility] Address [address] 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 Not on file Not on file Not on file documented as of this encounter Plan of Treatment Upcoming Encounters Date Type Department Care Team (Late st Contact Info) Description 06/18/2025 Procedure Pass [facility] [address] [place] [address] 12/17/2025 1:00 PM EDT Appointment Echo Lab [address] [place] [address] Dionisio Oglesby MD [address] [place] [address], [address] [address] [email or web address] 12/31/2025 1:40 PM EDT Office Visit [facility] [address] [place] [address] [address]rd Floor, [address] [place] [address] Dionisio Oglesby MD [address] [place] [address], [address] [address] [email or web address] documented as of this encounter Results * XR CERVICAL SPINE 2-3 VIEWS (10/06/2023 12:52 PM EST) Anatomical Region Laterality Modality C-spine Computed Radiogr aphy 10/08/2023 1:38 AM EST Impressions 10/08/2023 1:40 AM EST Severe facet and uncovertebral osteoarthritis. Narrative 10/08/2023 1:40 AM EST XR CERVICAL SPINE 2-3 VIEWS REQUESTED INDICATION: Cervical radiculopathy, no red flags COMPARISON: None FINDINGS: ALIGNMENT: No spondylolisthesis. Open-mouth view demonstrates normal alignment of the C1-C2 lateral masses. VERTEBRAE: Bones demineralized. Vertebral body heights preserved. DISCS: Disc height loss and endplate sclerosis and marginal osteophytes C4-5 and C6-7. C7-T1 obscured by shoulder soft tissues. FACETS: Facet and uncovertebral arthropathy at all levels. PARASPINAL SOFT TISSUES: Partially visualized sternotomy wires. Left carotid artery calcification. Procedure Note Ana Jane MD - 10/08/2023 XR CERVICAL SPINE 2-3 VIEWS REQUESTED INDICATION: Cervical radiculopathy, no red flags COMPARISON: None FINDINGS: ALIGNMENT: No spondylolisthesis. Open-mouth view demonstrates normalalignment of the C1-C2 lateral masses. VERTEBRAE: Bones demineralized. Vertebral body heights preserved. DISCS: Disc height loss and endplate sclerosis and marginal osteophytesC4-5 and C6-7. C7-T1 obscured by shoulder soft tissues. FACETS: Facet and uncovertebral arthropathy at all levels. PARASPINAL SOFT TISSUES: Partially visualized sternotomy wires. Leftcarotid artery calcification. IMPRESSION: Severe facet and uncovertebral osteoarthritis. Ghazal ZAZUETA IMG XR SPINE Final Resul t documented in this encounter Visit Diagnoses Diagnosis Radiculopathy, cervical- Primary Brachial neuritis or radiculitis nos Radiculopathy, cervical Brachial neuritis or radiculitis nos documented in this encounter Care Teams Statistical Modeler Relationship Specialty Start Date End Date Bay Mayorga DO [address] [place] [address] PCP - General 09/30/17 documented as of this encounter Additional Source Comments The information contained in this document represents components of the legal health record. It is not the complete legal health record.[facility]
--- OUTSIDE RECORDS SUMMARY | 2025-08-01 09:46 | XMS_ITS | Encounter Summary ---
Author Organization [facility] Address [address] [facility] [address] [place] [address] Phone Care Team Providers Care Log Haul Chain Feeder Name Role Phone RamakrishnaBay garcía Hannah [place] Primary Care Provider [phone] Reason for Referral * MRI/CAT Scan - Closed Specialty Diagnoses / Procedures Referred By Contac t Referred To Contact Radiology Diagnoses Shortness of breath Procedures NC Myocardial Perfusion Exercise Multiple NC Myocardial Perfusion Pharmacologic Stress Multiple Braxton Andersen MD Phone: tel: fax: [email or web address] Referral ID Status Reason Start Date Expiration Date Visits Re quested Visits Authorized [id number] Closed 06/15/2024 06/15/2025 1 1 Encounter Details Date Type Department Care Team (Latest Contact Info) Description 06/30/2024 Ancillary Orders [facility] [address] [place] [address] 3rd Floor, [address] [place] [address] Braxton Andersen MD [address] [facility], [address] [place] [address] [email or web address] Shortness of breath (Primary Dx); Presence of prosthetic heart valve; Chronic heart failure with preserved ejection fraction Social History Tobacco Use Types Packs/Day Years Used Date Smoking Tobacco: Former Cigarettes 1 1971 Smokeless Tobacco: Never Alcohol Use Standard [...] 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 Date 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 on file Not on file Not on file documented as of this encounter Plan of Treatment Upcoming Encounters Date Type Department Care Team (Late st Contact Info) Description 06/18/2025 Procedure Pass Echo Lab [address] [place] [address] 12/17/2025 1:00 PM EDT Appointment Echo Lab [address] [place] [address] Dionisio Oglesby MD [address] [facility], [address] [place] [address] 12/31/2025 1:40 PM EDT Office Visit [facility] [address] [facility] 3rd Floor, [address] [place] [address] Dionisio Oglesby MD [address] [facility], [address] [place] [address] [email or web address] documented as of this encounter Results * NC Myocardial Perfusion Exercise Multiple (06/30/2024 9:35 AM EDT) [facility] Signature Max Predicted Heart Rate 145 bpm Stress/rest perfusion ratio 0.88 Nuc Stress EF 66 % SNMDIAVOL 112.0 mL SNMSYSVOL 38.0 mL Nuc Rest EF 66 % RNMDIAVOL 124.0 mL RNMSYSVOL 42.0 mL Anatomical Region Laterality Modality Heart, Vascular Ultrasound Addenda Addendum by Braxton Andersen MD on 10/17/2024 11:04 AM EST Stress ejection fraction is 66%. Myocardial perfusion stress test imaging report-normal No significant myocardial perfusion defects were seen at stress and at rest images Normal left ventricular systolic function. LV EF is 66 per Conclusion; No ischemia or infarction seen Normal left ventricular systolic function. Stress Findings NUCLEAR REPORT: TYPE OF STUDY: Myocardial Perfusion Imaging after exercise utilizing a Modified Harvey protocol with gated SPECT. PROTOCOL USED: One day rest- stress protocol in the supine and prone position. Images were obtained in gated tomographic technique. Images were processed in SPECT format, reconstructed tomographically and compared [id number] in short axis, horizontal long axis and vertical long axis. DOSE: Technetium 99m Sestamibi 7.2 mCi injected intravenously in the right antecubital vein at rest on 06/30/2024 with post injection scan time of 60 minutes. Technetium 99m Sestamibi 21.6 mCi injected intravenously in the right arm antecubital vein during stress on 06/30/2024 with post injection scan time of 20 minutes. Overall image quality is good. Diaphragmatic attenuation is present. No motion artifact is present. ECG STRESS REPORT: BMI: 33.72 The Nuclear StressTest was performed as a modified Harvey protocol due to having a 2-1 heart block prior to testing and Lexiscan is contraindicated with this. Mr. LisawiDustin douglas exercised for 5:51 min on a modified HARVEY protocol achieving 3.4 METS. Test terminated due to shortness of breath. Baseline resting HR was 57 bpm. Max heart rate achieved was 136 bpm (93% MPHR). 1. EKG - Baseline EKG showed sinus bradycardia with a high degree AV erick block. During exercise there were no identifiable EKG changes that were suggestive of ischemia. 2. SYMPTOMS -No chest pain 3. EXERCISE PHYSIOLOGY -Poor functional capacity for age. BP 120/80 at rest, BP 150/90 during exercise, BP 140/76 on discharge from stress lab. 4. ARRHYTHMIAS -Second-degree heart block type I, complete heart block runs and there were rare isolated PVCs, occasional runs of atrial bigeminy. Conclusion -There were no EKG changes suggestive for ischemia. There were no symptoms reported concerning for angina. Nuclear images pending and will be reported separately. See attached stress report for full details. Ashia Rangel NP Stress Function Defect Left ventricular global function is normal during stress. Stress ejection fraction is 66%. The stress end diastolic cavity size is normal. Stress end diastolic size: 112.0 mL. The stress end systolic cavity size is normal. Stress end systolic size: 38.0 mL. Rest Function Defect Left ventricular global function is normal at rest. Resting ejection fraction was 66%. The rest end diastolic cavity size is normal. Rest end diastolic size: 124.0 ml. The rest end systolic cavity size is normal. Rest end systolic size: 42.0 mL. Nuclear Prior Study There is no prior study available for comparison. Nuclear Ancillary Finding There is no evidence of transient ischemic dilation (TID). The TID ratio is 0.88, which is normal. Perfusion Scoring Resting Summed Score: 7 Percent Normal: 10.29% Moderate count reduction in the following segments: apical inferior, apical lateral and apex. Mild count reduction in the following segments: apical septal. All other segments are normal. SUPINE IMAGING REST Perfusion Scoring Stress Summed Score: 0 Percent Normal: 0.00% The left ventricular perfusion is normal. PRONE IMAGING STRESS Perfusion Scores: SRS Score: 7 Percentage Abnormal: 10.29% Perfusion Scores: SSS Score: 0 Percentage Abnormal: 0.00% Perfusion Scores: SDS Score: N/A Percentage Abnormal: N/A us Braxton Andersen MD CV NM CARDIAC Edited R esult - Final documented in this encounter Visit Diagnoses Diagnosis Shortness of breath- Primary Shortness of breath- Primary Presence of prosthetic heart valve Chronic heart failure with preserved ejection fraction documented in this encounter Care Teams Log Haul Chain Feeder Relationship Specialty Start Date End Date Bay Mayorga DO [address] [place] [address] [email or web address] PCP - General 09/30/17 documented as of this encounter Additional Source Comments The information contained in this document represents components of the legal health record. It is not the complete legal health record.[facility]
--- OUTSIDE RECORDS SUMMARY | 2025-08-01 09:46 | XMS_ITS | Encounter Summary ---
Author Organization [facility] Address [address] [facility] [address] [place] [address] Phone Care Team Providers Care Accounting System Expert Name Role Phone Bay Mayorga DO Primary Care Provider [phone] Encounter Details Date Type Department Care Team (Late Contact Info) Description 05/02/2020 Procedure Pass [facility] Endoscopy Admitting Dept Virtual Department [address] [place] [address] Social History Tobacco Use Types Packs/Day Years [...] Encounters Date Type Department Care Team ([facility] Contact Info) Description 06/18/2025 Procedure Pass Echo Lab [address] [place] [address] 12/17/2025 1:00 PM EDT Appointment Echo Lab [address] [place] [address] Dionisio Oglesby MD [address] [facility], [address] [place] [address] 12/31/2025 1:40 PM EDT Office Visit [facility] [address] [facility] 3rd Floor, [address] [place] [address] Dionisio Oglesby MD [address] [facility], [address] [place] [address] documented as of this encounter Visit Diagnoses Not on filedocumented in this encounter Care Teams Accounting System Expert Relationship Specialty Start Date End Date Bay Mayorga DO [address] [facility] [address] [place] [address] PCP - General 09/30/17 documented as of this encounter Additional Source Comments The information contained in this document represents components of the legal health record. It is not the complete legal health record.[facility]
--- OUTSIDE RECORDS SUMMARY | 2025-08-01 09:46 | XMS_ITS | Encounter Summary ---
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 file Not on file documented as of this encounter Plan of Treatment Upcoming Encounters Date Type Department Care Team (Late st Contact Info) Description 06/18/2025 Procedure Pass Echo Lab [address] [place] [address] 12/17/2025 1:00 PM EDT Appointment Echo Lab [address] [place] [address] Dionisio Oglesby MD [address] [place] [address] 12/31/2025 1:40 PM EDT Office Visit [facility] [address] [place] [address] 3rd Floor, [address] [place] [address] Dionisio Oglesby MD [address] [place] [address], [address] [address] documented as of this encounter Visit Diagnoses Not on filedocumented in this encounter Care Teams Stock Broker Supervisor Relationship Specialty Start Date End Date Bay Mayorga DO [address] [facility] [place] [address] [place] [address] PCP - General 09/30/17 documented as of this encounter Additional Source Comments The information contained in this document represents components of the legal health record. It is not the complete legal health record.[facility]
--- OUTSIDE RECORDS SUMMARY | 2025-08-01 09:46 | XMS_ITS | Encounter Summary ---
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 Not on file documented as of this encounter Plan of Treatment Upcoming Encounters Date Type Department Care Team (Late st Contact Info) Description 06/18/2025 Procedure Pass Echo Lab [address] [place] [address] 12/17/2025 1:00 PM EDT Appointment Echo Lab [address] [place] [address] Dionisio Oglesby MD [address] [place] [address] 12/31/2025 1:40 PM EDT Office Visit [facility] [address] [place] [address] 3rd Floor, [address] [place] [address] Dionisio Oglesby MD [address] [place] [address], [address] [address] documented as of this encounter Visit Diagnoses Not on filedocumented in this encounter Care Teams China And Silverware Salesperson Relationship Specialty Start Date End Date Bay Mayorga DO [address] [facility] [place] [address] PCP - General 09/30/17 documented as of this encounter Additional Source Comments The information contained in this document represents components of the legal health record. It is not the complete legal health record.[facility]
--- OUTSIDE RECORDS SUMMARY | 2025-08-01 09:46 | XMS_ITS | Encounter Summary ---
Author Organization [facility] Address [address] [place], [place] [address] [place] [address] Phone Care Team Providers Care Derrick Worker Name Role Phone Bay Mayorga DO Primary Care Provider [phone] Reason for Referral * Outpatient Procedure - Closed Specialty Diagnoses / Procedures Referred By Markus ahmadi Referred To Contact Diagnoses History of aortic valve replacement Procedures Adult Echo TTE Bay Mayorga DO Phone: tel: fax: [email or web address] Referral ID Status Reason Start Date Expiration Date Visits Re quested Visits Authorized [id number] Closed 04/14/2019 04/13/2020 1 1 Encounter Details Date Type Department Care Team (Late st Contact Info) Description 04/14/2019 Transcribe Orders Virtual Department [address] [place] [address] Bay Mayorga DO [address] [facility] [place] [address] [place] [address] [email or web address] History of aortic valve replacement (Primary Dx) Social History Tobacco Use Types [...] Info) Description 06/18/2025 Procedure Pass Echo Lab [address] [place] [address] 12/17/2025 1:00 PM EDT Appointment Echo Lab [address] [place] [address] Dionisio Oglesby MD [address] [place] [address], [address] [place] [address] [email or web address] 12/31/2025 1:40 PM EDT Office Visit [facility] [address] [place] [address] 3rd Floor, [address] [place] [address] Dionisio Oglesby MD [address] [place] [address], [address] [place] [address] documented as of this encounter Results * TTE COMPREHENSIVE (05/12/2019 11:19 AM EDT) Body Surface Area 2.2 m2 Height 180 cm Weight 104 kg Systolic BP 154 mmHg Diastolic BP 91 mmHg Interventricular Septum Thickness 14 mm Left Ventricle Internal Diameter End Diastole 39 42 - 58 mm Left Ventricle Internal Diameter End Systole 28 25 - 40 mm Left Ventricular Outflow Tract Diameter 21.0 mm LVOT VTI REST 254 mm Left Ventricular Outflow Tract Velocity 1.4 m/s Left Ventricular Outflow Tract Gradient at Rest 8 mmHg Left Ventricular Posterior Wall Thickness 11 mm Ejection Fraction 65 50 - 75 Percent Left Atrium Dimension Anterior-Posterior 43 15 - 40 mm Aortic Valve Peak Velocity 244.0 cm/s Aortic Valve Peak Gradient 24 mmHg Aortic Valve Mean Gradient 13 mmHg Aortic Valve Time Velocity Integral 457 mm Aortic Sinus Diameter 32 mm Ascending Aorta Diameter 39 mm Inferior Vena Cava Diameter 10 0.0 - 21 mm Mitral Valve Deceleration Time 261 ms Mitral Valve A Wave Speed 104.0 cm/s Mitral Valve E Wave Speed 80.1 cm/s Right Ventricle Basal Diameter 27.2 25 - 41 mm Tricuspid Valve Peak Velocity 2.2 m/s Raw LV EF% 48 % Left Atrial Volume 33 mL Left Atrial Volume Index 15.00 mL/m2 Right Ventricle Peak Systolic Pressure 22 mmHg Right Atrium Pressure Estimated 3 mmHg Right Ventricle to Right Atrium Pressure Gradient 19 mmHg Aortic Valve Sinus Index 1 15 20 - 32 mm Ascending Aorta Diameter 18 mm Aortic Sinus Index 15 mm Ascending Aorta Index 18 mm Aortic Valve Prosthetic Mean Gradient 13 mmHg Aortic Valve Prosthetic Peak Gradient 24 mmHg Anatomical Region Laterality Modality Heart Ultrasound Narrative 05/13/2019 9:14 AM EDT The rhythm is sinus rhythm with 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 Left ventricular cavity size is normal and the left ventricular wall thickness is increased. There is mild concentric left ventricular hypertrophy. Left ventricular systolic function is normal. There are no segmental left ventricular wall motion abnormalities noted. The estimated ejection fraction is 65% (Normal 50-75%). The left ventricular ejection fraction was measured by visual estimate. Left ventricular diastolic function appears within normal limits for age. There is a bioprosthetic valve in the aortic position. The valve's size is 25. The peak gradient is 24 mmHg. The mean gradient is 13 mmHg. The gradients appear normal for this valve. Peak AVR velocity 2.3 m/s. There is evidence of mild tricuspid regurgitation by color and spectral Doppler. Normal pulmonary pressure. The RV systolic pressure was estimated from the peak TV regurgitant velocity. The estimated RV systolic pressure is 22 mmHg assuming a right atrial pressure of 3 mmHg. 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 Left Ventricle Left ventricular cavity size is normal and the left ventricular wall thickness is increased. There is mild concentric left ventricular hypertrophy. Left ventricular systolic function is normal. There are no segmental left ventricular wall motion abnormalities noted. The estimated ejection fraction is 65% (Normal 50-75%). The left ventricular ejection fraction was measured by visual estimate. Left ventricular diastolic function appears within normal limits for age. Right Ventricle The right ventricular size is normal. The right ventricular systolic function is normal. Left Atrium The left atrium is normal in size. Pulmonary vein connections were not well seen. Right Atrium The right atrium is normal in size. The IVC measures 10 mm (normal <=21 mm). The IVC demonstrates normal collapse with inspiration which is consistent with normal RA pressure. Mitral Valve The mitral valve appears normal. E/A ratio is 0.8. E/E' avg is 9.8. Lat E' velocity is 10.6cm/s. Med E' velocity is 5.77cm/s. There is no evidence of mitral stenosis. There is mild increased thickening of both mitral valve leaflets. There is trace mitral regurgitation detected by spectral and color Doppler. Tricuspid Valve The tricuspid valve appears normal. There is no evidence of tricuspid stenosis. There is evidence of mild tricuspid regurgitation by color and spectral Doppler. Peak TR is 2.2m/s. Normal pulmonary pressure. The RV systolic pressure was estimated from the peak TV regurgitant velocity. The estimated RV systolic pressure is 22 mmHg assuming a right atrial pressure of 3 mmHg. Aortic Valve There is a bioprosthetic valve in the aortic position. The valve's size is 25. The peak gradient is 24 mmHg. The mean gradient is 13 mmHg. The gradients appear normal for this valve. Peak AVR velocity 2.3 m/s. There is evidence of trace aortic regurgitation by color and spectral Doppler. The ascending aorta is mildly dilated. - 3.9 cm. Pulmonic Valve The pulmonary valve appears normal. There is no evidence of pulmonic stenosis. There is evidence of mild pulmonary regurgitation by color and spectral Doppler. Pericardium There is no evidence of pericardial effusion. Interatrial Septum The interatrial septum appears normal. There is no evidence of an atrial septal defect. Interventricular Septum Interventricular septal motion appears normal. There is no evidence of a ventricular septal defect. General Findings The image quality was fair (3). Technique(s) used in the evaluation: Color flow Doppler and Spectral Doppler. 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 Comparison Findings Compared to a prior report from 01/15/2014, rampart aortic valve with vegetation has been replaced with a bioprosthetic aortic valve. us Bay Mayorga DO CV ECHO ORDERABLES Final Result documented in this encounter Visit Diagnoses Diagnosis History of aortic valve replacement- Primary Heart valve replaced by other means History of aortic valve replacement Heart valve replaced by other means documented in this encounter Care Teams Derrick Worker Relationship Specialty Start Date End Date Bay Mayorga DO [address] [place] [address] PCP - General 09/30/17 documented as of this encounter Additional Source Comments The information contained in this document represents components of the legal health record. It is not the complete legal health record.[facility]
--- OUTSIDE RECORDS SUMMARY | 2025-08-01 09:46 | XMS_ITS | Encounter Summary ---
Author Organization [facility] Address [address] [place] [address] [address] [place] [address] Phone Care Team Providers Care Telephone Recorder Name Role Phone Bay Mayorga Primary Care Provider [phone] Encounter Details Date Type Department Care Team (Late st Contact Info) Description 05/04/2023 Procedure Pass [facility] Echo Lab [address] [place] [address] Social History Tobacco Use Types Packs/Day Years [...] with a working camera? 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 Not on file Not on file documented as of this encounter Plan of Treatment Upcoming Encounters Date Type Department Care Team (Late st Contact Info) Description 06/18/2025 Procedure Pass Echo Lab [address] [place] [address] 12/17/2025 1:00 PM EDT Appointment Echo Lab [address] [place] [address] Dionisio Oglesby MD [address] [place] [address], [address] [address] 12/31/2025 1:40 PM EDT Office Visit [facility] [address] [place] [address] 3rd Floor, [address] [place] [address] Dionisio Oglesby MD [address] [place] [address], [address] [id number] documented as of this encounter Visit Diagnoses Not on filedocumented in this encounter Care Teams Telephone Recorder Relationship Specialty Start Date End Date Bay Mayorga DO [address] [facility] [place] [address] [place] [address] PCP - General 09/30/17 documented as of this encounter Additional Source Comments The information contained in this document represents components of the legal health record. It is not the complete legal health record.[facility]
[2025-08-01 14:00] LABS: Hemoglobin A1C 168.7606 umol/L; Total Hemoglobin (HGBA1C) 3895.3393 umol/L
[2025-08-01 14:07] LABS: Alanine Aminotransferase 20 U/L (0-40); Albumin Level 4.4 g/dL (3.5-5.0); Alkaline Phosphatase 67 U/L (39-117); Anion Gap 13 (12-20); Aspartate Amino Transferase 27 U/L (5-37); Blood Urea Nitrogen 14 mg/dL (9-16); Calcium 9.1 mg/dL (8.4-10.2); Carbon Dioxide 30 mmol/L (22-29); Chloride 102 mmol/L (96-108); Estimated Glomerular Filt Rate > 60; Potassium 3.5 mmol/L (3.3-5.1); Sodium 141 mmol/L (135-145); Total Protein 6.6 g/dL (6.5-8.0)
== END 2025-08-01 09:04 | disposition home or self-care (01) ==
LOC: HO.MANLDS 09:03
PROVIDERS: Visit Provider Internal Medicine
DX: R73.01 Impaired fasting glucose (principal)
CPT/HCPCS: 36415; 80053; 83036